=== PATIENT | female | born 1935 | race American Indian/Alaskan Native ===

== ENCOUNTER 2019-02-02 15:29 | Inpatient (IN) | payer MEDICARE ==
--- NOTE | 2019-02-02 15:39 | Emergency Department Report ---
ED Neuro Deficit HPI - General Chief Complaint: Neuro Symptoms/Deficit Stated Complaint: STROKE Time Seen by Provider: 02/02/19 15:38 Source: EMS Mode of arrival: Stretcher Limitations: Other - History of Present Illness Initial Comments: 3-year-old female with information obtained indicating that her last known well time was at 9 AM more than 6 hours prior to arrival. She went to sleep at that time. According to the family she is ordinarily able to ambulate. They also told the nurse that she had a seizure prior to EMS being somnolent because she was not able to get out of her bed. The patient arrives as a stroke code. At the door she is not providing any significant information. She does seem to respond to her name but does not follow commands. She is awake at the time. She presented with an apparently dense left hemiparesis. -: unknown Location: speech (last known well time 9 AM), left arm, left leg History of same: Yes (history of previous stroke but ambulatory according to history) Place: home Severity: severe Quality: weak On Anticoagulants: Yes Associated Symptoms: denies other symptoms - Related Data Home Medications: Home Medications Medication Instructions Recorded Confirmed Last Taken AtorvaSTATin [Lipitor] 80 mg PO QHS 02/02/19 02/02/19 Unknown Escitalopram [Lexapro] 30 mg PO DAILY 02/02/19 02/02/19 Unknown Lisinopril [Zestril TAB] 20 mg PO QDAY 02/02/19 02/02/19 Unknown Allergies/Adverse Reactions: Allergies Allergy/AdvReac Type Severity Reaction Status Date / Time No Known Allergies Allergy Unverified 02/02/19 15:30 ED Review of Systems ROS: Stated complaint: STROKE Other details as noted in HPI Comment: Unobtainable due to pts medical conditions (Limited secondary to neurological status) Neurological: denies: headache ED Past Medical Hx - Past Medical History Additional medical history: Previous stroke. On unknown anticoagulant per medic staff. Hospitalist tells me history of multiple sclerosis. I have not verified this. - Social History Substance Use Type: None - Medications Home Medications: Home Medications Medication Instructions Recorded Confirmed Last Taken Type AtorvaSTATin [Lipitor] 80 mg PO QHS 02/02/19 02/02/19 Unknown History Escitalopram [Lexapro] 30 mg PO DAILY 02/02/19 02/02/19 Unknown History Lisinopril [Zestril TAB] 20 mg PO QDAY 02/02/19 02/02/19 Unknown History ED Neuro Physical Exam - General Limitations: Other (stroke symptoms) General appearance: alert, in no apparent distress Suspected Stroke: Yes - Head Head exam: Present: atraumatic, normocephalic - Eye Eye exam: Present: normal appearance. Absent: scleral icterus - ENT ENT exam: Present: mucous membranes moist - Neck Neck exam: Present: normal inspection - Respiratory Respiratory exam: Present: normal lung sounds bilaterally. Absent: respiratory distress - Cardiovascular Cardiovascular Exam: Present: regular rate, normal rhythm. Absent: systolic murmur, diastolic murmur, rubs, gallop - GI/Abdominal GI/Abdominal exam: Present: soft, normal bowel sounds. Absent: distended, tenderness, guarding, rebound - Extremities Exam Extremities exam: Present: normal inspection - Back Exam Back exam: Present: normal inspection - Neurological Exam Neurological exam: Present: alert, motor sensory deficit. Absent: CN II-XII intact - NIHSS Assessment Interval: Baseline 1a. Level of Consciousness: alert/keenly responsive 1b. LOC Questions: answers no questions correctly 1c. LOC Commands: performs no tasks correctly 2. Best Gaze: normal 3. Visual: no visual loss 4. Facial Palsy: minor paralysis 5b. Motor Arm Right: no drift 5a. Motor Arm Left: no movement 6a. Motor Leg Left: no movement 6b. Motor Leg Right: no drift 7. Limb Ataxia: absent 8. Sensory: mild/moderate sensory loss 9. Best Language: mild/moderate aphasia 10. Dysarthria: normal 11. Extinction/Inattention: visual/tactile inattention Total Score: 16 Stroke Severity: Moderate to Severe Stroke - Psychiatric Psychiatric exam: Present: normal affect, normal mood - Skin Skin exam: Present: warm, dry, intact, normal color. Absent: rash ED Course Vital Signs 02/02/19 02/02/19 02/02/19 15:40 15:46 16:00 Temperature Pulse Rate 91 H 87 79 Respiratory 17 22 19 Rate Blood Pressure 125/97 125/97 O2 Sat by Pulse 100 100 Oximetry 02/02/19 02/02/19 02/02/19 16:16 16:30 16:34 Temperature 98.3 F Pulse Rate 73 68 Respiratory 16 19 Rate Blood Pressure 140/71 140/71 O2 Sat by Pulse 100 81 L Oximetry - Reevaluation(s) Reevaluation #1: Patient has a large right frontal infarct with certainly could affect the motor cortex. It is certainly not acute. At best it is subacute and possibly quite chronic. She would not be a candidate for thrombolysis with a large stroke appearing in a watershed correlating area on CT. She is not a candidate based on last known well time. She is further not a candidate based on anticoagulant therapy to be determined which type. In addition her appropriateness for TPA would be limited by the seizure that she had prior to arrival which suggest the possibility of a Bryce's paresis. I discussed this with the neurologist on-call who agrees that the patient is not a candidate for thrombolytics nor interventional therapy at this time with nothing on CT to suggest hyperdensity secondary to acute thrombosis. 02/02/19 18:26 Reevaluation #2: Reexamination shows that the patient is able to follow commands and stated her name. She remains with a dense left hemiparesis. 02/02/19 18:30 - Lab Data Result diagrams: 02/02/19 16:12 02/02/19 16:12 Lab Results 02/02/19 02/02/19 02/02/19 Range/Units 15:46 16:12 16:12 WBC 7.6 (4.5-11.0) K/mm3 RBC 4.12 (3.65-5.03) M/mm3 Hgb 13.2 (10.1-14.3) gm/dl Hct 38.5 (30.3-42.9) % MCV 94 (79-97) fl MCH 32 (28-32) pg MCHC 34 (30-34) % RDW 13.3 (13.2-15.2) % Plt Count 168 (140-440) K/mm3 Lymph % (Auto) 16.0 (13.4-35.0) % [place] % (Auto) 5.0 (0.0-7.3) % Eos % (Auto) 0.2 (0.0-4.3) % Baso % (Auto) 0.3 (0.0-1.8) % Lymph # 1.2 (1.2-5.4) K/mm3 [place] # 0.4 (0.0-0.8) K/mm3 Eos # 0.0 (0.0-0.4) K/mm3 Baso # 0.0 (0.0-0.1) K/mm3 Seg Neutrophils % 78.5 H (40.0-70.0) % Seg Neutrophils # 6.0 (1.8-7.7) K/mm3 PT 13.6 (12.2-14.9) Sec. INR 0.98 (0.87-1.13) APTT 25.7 (24.2-36.6) Sec. Thrombin Time (15.1-19.6) Sec. Sodium (137-145) mmol/L Potassium (3.6-5.0) mmol/L Chloride (98-107) mmol/L Carbon Dioxide (22-30) mmol/L Anion Gap mmol/L BUN (7-17) mg/dL Creatinine (0.7-1.2) mg/dL Estimated GFR ml/min BUN/Creatinine Ratio % Glucose (65-100) mg/dL POC Glucose 69 L (70-105) Calcium (8.4-10.2) mg/dL Troponin T (0.00-0.029) ng/mL 02/02/19 02/02/19 Range/Units 16:12 16:12 WBC (4.5-11.0) K/mm3 RBC (3.65-5.03) M/mm3 Hgb (10.1-14.3) gm/dl Hct (30.3-42.9) % MCV (79-97) fl MCH (28-32) pg MCHC (30-34) % RDW (13.2-15.2) % Plt Count (140-440) K/mm3 Lymph % (Auto) (13.4-35.0) % [place] % (Auto) (0.0-7.3) % Eos % (Auto) (0.0-4.3) % Baso % (Auto) (0.0-1.8) % Lymph # (1.2-5.4) K/mm3 [place] # (0.0-0.8) K/mm3 Eos # (0.0-0.4) K/mm3 Baso # (0.0-0.1) K/mm3 Seg Neutrophils % (40.0-70.0) % Seg Neutrophils # (1.8-7.7) K/mm3 PT (12.2-14.9) Sec. INR (0.87-1.13) APTT (24.2-36.6) Sec. Thrombin Time 16.3 (15.1-19.6) Sec. Sodium 139 (137-145) mmol/L Potassium 3.9 (3.6-5.0) mmol/L Chloride 98.3 (98-107) mmol/L Carbon Dioxide 24 (22-30) mmol/L Anion Gap 21 mmol/L BUN 20 H (7-17) mg/dL Creatinine 1.1 (0.7-1.2) mg/dL Estimated GFR 58 ml/min BUN/Creatinine Ratio 18 % Glucose 44 L (65-100) mg/dL POC Glucose (70-105) Calcium 9.6 (8.4-10.2) mg/dL Troponin T < 0.010 (0.00-0.029) ng/mL - EKG Data -: EKG Interpreted by Pa EKG shows normal: sinus rhythm, axis (left axis), intervals, QRS complexes, ST-T waves Rate: normal Interpretation: no acute changes - Radiology Data Radiology results: report reviewed FINDINGS: The ventricular system is normal in size and configuration. There is mild cerebral atrophy. Low- density in the right frontal lobe is consistent with remote infarct. Tiny remote lacunar infarcts in the basal ganglia bilaterally are noted. There is no evidence for mass lesion, mass effect, midline shift, acute i ntracranial hemorrhage, or acute ischemia/ infarction. No evidence for acute skull fracture is seen. No abnormality in the overlying scalp soft tissues is seen. Visualized paranasal sinuses are clear. IMPRESSION: No acute intracranial process noted. Remote infarct in the right frontal lobe with small lacunar infarcts in the basal ganglia bilaterally Critical Care Time: Yes Critical care time in (mins) excluding proc time.: 55 Critical care attestation.: If time is entered above; I have spent that time in minutes in the direct care of this critically ill patient, excluding procedure time. ED Disposition Clinical Impression: CVA (cerebral vascular accident) Qualifiers: CVA mechanism: unspecified Qualified Code(s): I63.9 - Cerebral infarction, unspecified Disposition: 09 OP ADMIT IP TO THIS HOSP Is pt being admited?: Yes Does the pt Need Aspirin: Yes Condition: Stable Referrals: MILI VILLAFANA MD [Primary Care Provider] - 3-5 Days Time of Disposition: 19:05
--- NOTE | 2019-02-02 15:52 | Cat Scan Report ---
In PROCEDURE: CT HEAD/BRAIN WO CON TECHNIQUE: Computerized tomography of the head was performed without contrast material. Imaging was obtained in axial increments. CT DOSE LENGTH PRODUCT: 1048.6 mGycm HISTORY: neuro deficits <6hrs or sx present upon awakening COMPARISONS: None . FINDINGS: The ventricular system is normal in size and configuration. There is mild cerebral atrophy. Low-densi ty in the right frontal lobe is consistent with remote infarct. Tiny remote lacunar infarcts in the b yasmin ganglia bilaterally are noted. There is no evidence for mass lesion, mass effect, midline shift, acute intracranial hemorrhage, or a cute ischemia/ infarction. No evidence for acute skull fracture is seen. No abnormality in the overlying scalp soft tissues is s een. Visualized paranasal sinuses are clear. IMPRESSION: No acute intracranial process noted. Remote infarct in the right frontal lobe with small lacunar infa rcts in the basal ganglia bilaterally This document is electronically signed by Chaya Bhatia MD., February 02 2019 03:50:35 PM ET
--- NOTE | 2019-02-02 16:15 | Consultation ---
History of Present Illness Consult date: 02/02/19 Reason for Consult: stroke alert Chief complaint: stroke alert- left sided weakness History of present illness: [facility] date of service: 02/02/19 Metrics: LKN 0900 door 1522 TS called 1547 TS connected 1550 NIH 1550 Impression: r/o stroke vs seizure from right frontal stroke (old) Recommendations: not a tPA candidate due to LKN time not an LVO if clear seizure history would recommend starting Keppra 1g IV load and then 500-750 mg po BID for maintenance MRI brain to r/o new stroke d/w ED doctor at time of assessment Ngoc Dietrich MD CC: stroke/seizure History of Present Illness: 83 yo female with h/o prior stroke but unable to tell me which side of her body it affected; nurse reports there was a witnessed seizure at home at 0900 hrs followed by worsening left sided weakness- on arrival she was not cooperating nor following commands, she has improved greatly and is able to follow all commands but not move left arm and leg there is sensory reduction as well in this region no h/o seizures no family present at this time Diagnostic Testing: CT right frontal infarct with large cortical involvement no blood Vital Signs: noted Medical Decision Making: - Extensive number of diagnosis or management options are considered above. - Extensive amount of complex data reviewed. - High risk of complication and/or morbidity or mortality are associated with differential diagnostic considerations above. - There may be uncertain outcome and increased probability of prolonged functional impairment or high probability of severe prolonged functional impairment associated with some of these differential diagnosis. Medical Data Reviewed: 1.Data reviewed include clinical labs, radiology, Medical Tests; 2.Tests results discussed w/performing or interpreting physician; 3.Obtaining/reviewing old medical records; 4.Obtaining case history from another source; 5.Independent review of image, tracing or specimen. Patient was informed the Neurology Consult would happen via telehealth (remote video) and consented to receiving care in this manner. Medications and Allergies Allergies Allergy/AdvReac Type Severity Reaction Status Date / Time No Known Allergies Allergy Unverified 02/02/19 15:30 Home Medications Medication Instructions Recorded Confirmed Last Taken Type AtorvaSTATin [Lipitor] 80 mg PO QHS 02/02/19 02/02/19 Unknown History Escitalopram [Lexapro] 30 mg PO DAILY 02/02/19 02/02/19 Unknown History Lisinopril [Zestril TAB] 20 mg PO QDAY 02/02/19 02/02/19 Unknown History - Level of Consciousness 1a. Level of Consciousness: alert/keenly responsive - LOC Questions 1b. LOC Questions: answers both correctly - LOC Command 1c. LOC Commands: performs tasks correctly - Best Gaze 2. Best Gaze: normal - Visual 3. Visual: no visual loss - Facial Palsy 4. Facial Palsy: minor paralysis - Motor Arm 5a. Motor Arm Left: some gravity effort 5b. Motor Arm Right: no drift - Motor Leg 6a. Motor Leg Left: some gravity effort 6b. Motor Leg Right: no drift - Limb Ataxia 7. Limb Ataxia: absent - Sensory 8. Sensory: mild/moderate sensory loss - Best Language 9. Best Language: no aphasia - Dysarthria 10. Dysarthria: normal - Extinction and Inattention 11. Extinction/Inattention: no abnormality - Scoring Total Score: 6 Stroke Severity: Moderate Stroke Results - Laboratory Findings CBC and BMP: 02/02/19 16:12 02/02/19 16:12
[2019-02-02] MEDS ORDERED: KEPPRA 1,000 MG/NS 0.75% 100ML 1,000 MG/100 ML BAG IV ONE (16:19)
[2019-02-02] MEDS ORDERED: KEPPRA 1,000 MG in D5W 100 ML IV ONE (16:20)
[2019-02-02 16:49] LABS: Basophils % (Auto) 0.3 % (0.0-1.8); Eosinophils % (Auto) 0.2 % (0.0-4.3); Hematocrit 38.5 % (30.3-42.9); Hemoglobin 13.2 gm/dl (10.1-14.3); Lymphocytes # (Auto) 1.2 K/mm3 (1.2-5.4); Mean Corpuscular HGB Conc 34 % (30-34); Mean Corpuscular Volume 94 fl (79-97); Monocytes # (Auto) 0.4 K/mm3 (0.0-0.8); Platelet Count 168 K/mm3 (140-440); Red Blood Count 4.12 M/mm3 (3.65-5.03); Red Cell Distribution Width 13.3 % (13.2-15.2)
[2019-02-02 16:59] LABS: INR 0.98 (0.87-1.13); Partial Thromboplastin Time 25.7 Sec. (24.2-36.6)
[2019-02-02 17:12] LABS: BUN/Creatinine Ratio 18; Blood Urea Nitrogen 20 mg/dL (7-17); Calcium 9.6 mg/dL (8.4-10.2); Hemolysis Index 4
--- NOTE | 2019-02-02 18:19 | History and Physical Report ---
History of Present Illness Date of examination: 02/02/19 Date of admission: 02/02/2019 Chief complaint: Left-sided weakness since 9 AM--sudden onset History of present illness: 83-year-old -[place] female with history of multiple strokes 3 hypertension hyperlipidemia dementia and depression was found to have left-sided weakness in both left upper exudate and left lower extremity. Patient is normally ambulatory. Activities of daily living like shower and eating has to be assisted. But she can walk to the bathroom. Patient has weakness in both left upper and left lower extremity which is new onset. While waiting for the EMS patient had generalized seizure which is first time occurrence. Seizures lasted for 1 minute. Patient was slightly postictal but in the emergency room she is alert and oriented. Last well-known time was 9 AM. Patient arrived around 3 PM. Patient is out of the window for TPA. Past History Past Medical History: hypertension, hyperlipidemia, seizures, stroke (3), other (depression) Past Surgical History: No surgical history Social history: no significant social history, lives with family, full code. denies: smoking, alcohol abuse Family history: hypertension Medications and Allergies Allergies Allergy/AdvReac Type Severity Reaction Status Date / Time No Known Allergies Allergy Unverified 02/02/19 15:30 Home Medications Medication Instructions Recorded Confirmed Last Taken Type AtorvaSTATin [Lipitor] 80 mg PO QHS 02/02/19 02/02/19 Unknown History Escitalopram [Lexapro] 30 mg PO DAILY 02/02/19 02/02/19 Unknown History Lisinopril [Zestril TAB] 20 mg PO QDAY 02/02/19 02/02/19 Unknown History Review of Systems All systems: negative Constitutional: no weight loss, no weight gain, no fever, no chills, no sweats, no night sweats Ears, nose, mouth and throat: no dysphagia, no hoarseness, no sore throat, no swelling in mouth Cardiovascular: no chest pain, no orthopnea, no palpitations, no rapid/irregular heart beat, no edema, no syncope, no lightheadedness, no shortness of breath Respiratory: no cough, no cough with sputum, no excessive sputum, no hemoptysis, no shortness of breath, no dyspnea on exertion Gastrointestinal: no nausea, no vomiting, no diarrhea Rectal: no pain Musculoskeletal: no neck stiffness, no neck pain, no shooting arm pain, no arm numbness/tingling, no low back pain, no shooting leg pain, no leg numbness/tingling, no redness of joints Integumentary: no rash, no pruritis, no redness, no sores Neurological: paralysis (left-sided weakness both upper and lower extremity), se izures, memory loss Psychiatric: memory loss Endocrine: no cold intolerance, no heat intolerance, no polyphagia, no excessive thirst, no polydipsia, no polyuria, no nocturia, no excessive sweating, no flushing, no weight change Hematologic/Lymphatic: no easy bruising, no easy bleeding Allergic/Immunologic: no urticaria, no allergic rhinitis, no wheezing Exam - Constitutional Vitals: Temp Pulse Resp BP Pulse Ox 98.3 F 68 19 140/71 81 L 02/02/19 16:34 02/02/19 16:30 02/02/19 16:30 02/02/19 16:30 02/02/19 16:30 General appearance: Present: no acute distress, well-nourished - EENT Eyes: Present: PERRL ENT: hearing intact, clear oral mucosa - Neck Neck: Present: supple, normal ROM - Respiratory Respiratory effort: normal Respiratory: bilateral: CTA - Cardiovascular Heart rate: 78 Rhythm: regular Heart Sounds: Present: S1 & S2. Absent: rub, click - Extremities Extremities: no ischemia, pulses intact, pulses symmetrical, No edema Peripheral Pulses: within normal limits - Abdominal General gastrointestinal: Present: soft, non-tender, non-distended, normal bowel sounds Female genitourinary: Present: normal - Rectal Rectal Exam: deferred - Integumentary Integumentary: Present: clear, warm, dry - Musculoskeletal Musculoskeletal: left sided weakness (power 1/5 in both upper and lower extremity-left side) - Psychiatric Psychiatric: cooperative - Neurologic Neurologic: CNII-XII intact, moves all extremities - Allied Health Allied health notes reviewed: nursing, case management (Nyasia mckeon) Results - Labs CBC & Chem 7: 02/02/19 16:12 02/02/19 16:12 Labs: Laboratory Last Values WBC 7.6 K/mm3 (4.5-11.0) 02/02/19 16:12 RBC 4.12 M/mm3 (3.65-5.03) 02/02/19 16:12 Hgb 13.2 gm/dl (10.1-14.3) 02/02/19 16:12 Hct 38.5 % (30.3-42.9) 02/02/19 16:12 MCV 94 fl (79-97) 02/02/19 16:12 MCH 32 pg (28-32) 02/02/19 16:12 MCHC 34 % (30-34) 02/02/19 16:12 RDW 13.3 % (13.2-15.2) 02/02/19 16:12 Plt Count 168 K/mm3 (140-440) 02/02/19 16:12 Lymph % (Auto) 16.0 % (13.4-35.0) 02/02/19 16:12 [place] % (Auto) 5.0 % (0.0-7.3) 02/02/19 16:12 Eos % (Auto) 0.2 % (0.0-4.3) 02/02/19 16:12 Baso % (Auto) 0.3 % (0.0-1.8) 02/02/19 16:12 Lymph # 1.2 K/mm3 (1.2-5.4) 02/02/19 16:12 [place] # 0.4 K/mm3 (0.0-0.8) 02/02/19 16:12 Eos # 0.0 K/mm3 (0.0-0.4) 02/02/19 16:12 Baso # 0.0 K/mm3 (0.0-0.1) 02/02/19 16:12 Seg Neutrophils % 78.5 % (40.0-70.0) H 02/02/19 16:12 Seg Neutrophils # 6.0 K/mm3 (1.8-7.7) 02/02/19 16:12 PT 13.6 Sec. (12.2-14.9) 02/02/19 16:12 INR 0.98 (0.87-1.13) 02/02/19 16:12 APTT 25.7 Sec. (24.2-36.6) 02/02/19 16:12 Thrombin Time 16.3 Sec. (15.1-19.6) 02/02/19 16:12 Sodium 139 mmol/L (137-145) 02/02/19 16:12 Potassium 3.9 mmol/L (3.6-5.0) 02/02/19 16:12 Chloride 98.3 mmol/L (98-107) 02/02/19 16:12 Carbon Dioxide 24 mmol/L (22-30) 02/02/19 16:12 Anion Gap 21 mmol/L 02/02/19 16:12 BUN 20 mg/dL (7-17) H 02/02/19 16:12 Creatinine 1.1 mg/dL (0.7-1.2) 02/02/19 16:12 Estimated GFR 58 ml/min 02/02/19 16:12 BUN/Creatinine Ratio 18 % 02/02/19 16:12 Glucose 44 mg/dL (65-100) L 02/02/19 16:12 POC Glucose 69 (70-105) L 02/02/19 15:46 Calcium 9.6 mg/dL (8.4-10.2) 02/02/19 16:12 Troponin T < 0.010 ng/mL (0.00-0.029) 02/02/19 16:12 Short CBC 02/02/19 Range/Units 16:12 WBC 7.6 (4.5-11.0) K/mm3 Hgb 13.2 (10.1-14.3) gm/dl Hct 38.5 (30.3-42.9) % Plt Count 168 (140-440) K/mm3 BMP 02/02/19 16:12 Sodium 139 Potassium 3.9 Chloride 98.3 Carbon Dioxide 24 BUN 20 H Creatinine 1.1 Glucose 44 L Calcium 9.6 Cardiac Enzymes 02/02/19 Range/Units 16:12 Troponin T < 0.010 (0.00-0.029) ng/mL - Imaging and Cardiology EKG: report reviewed Imaging and Cardiology: Head CT IMPRESSION: No acute intracranial process noted. Remote infarct in the right frontal lobe with small lacunar infarcts in the basal ganglia bilaterally EKG Data EKG Interpreted by Me EKG shows normal: sinus rhythm, axis (left axis), intervals, QRS complexes, ST-T waves Rate: normal Interpretation: no acute changes I Assessment and Plan Advance Directives: Yes (full code) VTE prophylaxis?: Chemical Plan of care discussed with patient/family: Yes - Patient Problems (1) Acute CVA (cerebrovascular accident) Current Visit: Yes Status: Acute Plan to address problem: Patient had strokes in the past but had no residual weakness. Was able to walk until this morning. Patient has left-sided weakness. Has 1/5 power in her left upper extremity and left lower extremity Stroke protocol initiated Patient did get MRI MRA carotid duplex scan and echocardiogram in the next 24 hours. Patient initiated on Plavix and aspirin. Neurology consult requested. Patient was on Lovenox in [place] with no clear indication. Lovenox will be stopped after discharge. (2) New onset seizure Current Visit: Yes Status: Acute Plan to address problem: Keppra initiated (3) Hypertension Current Visit: Yes Status: Chronic Qualifiers: Hypertension type: essential hypertension Qualified Code(s): I10 - Essential (primary) hypertension Plan to address problem: Continue antihypertensives especially lisinopril (4) Hyperlipidemia Current Visit: Yes Status: Chronic Qualifiers: Hyperlipidemia type: mixed hyperlipidemia Qualified Code(s): E78.2 - Mixed hyperlipidemia Plan to address problem: Continue statins (5) Depression Current Visit: Yes Status: Chronic Qualifiers: Depression Type: unspecified Qualified Code(s): F32.9 - Major depressive disorder, single episode, unspecified Plan to address problem: Continue citalopram (6) DVT prophylaxis Current Visit: Yes Status: Acute Plan to address problem: Initiated on Lovenox and GI prophylaxis
[2019-02-02] MEDS ORDERED: TYLENOL PO PRN (18:22)
[2019-02-02] MEDS ORDERED: SODIUM CHLORIDE FLUSH SYRINGE 10 ML IV PRN ×2 (18:22→18:30)
[2019-02-02] MEDS ORDERED: ZOFRAN IV PRN (18:22)
[2019-02-02] MEDS ORDERED: DILAUDID IV PRN (18:23)
[2019-02-02] MEDS ORDERED: D5NS 1,000 ML IV SCH (19:00)
[2019-02-02] MEDS: ZESTRIL PO SCH (19:02)
[2019-02-02] MEDS: ASPIRIN PO SCH (19:02)
[2019-02-02] MEDS ORDERED: ASPIRIN PO ONE (19:07)
[2019-02-02] MEDS: LEXAPRO PO SCH (20:47)
[2019-02-02] MEDS ORDERED: ASPIRIN ONE (20:53)
[2019-02-02] MEDS ORDERED: KETAMINE HCL IV ONE (21:50)
[2019-02-02] MEDS ORDERED: DIPRIVAN 10 MG/ML IV ONE (21:50)
[2019-02-02] MEDS: KEPPRA 750 MG in NACL 0.9% 100 ML IV SCH (23:40)
[2019-02-02] MEDS: LOVENOX SUB-Q SCH (23:41)
[2019-02-03] MEDS: SODIUM CHLORIDE FLUSH SYRINGE 10 ML IV SCH ×3 (00:18→21:29)
[2019-02-03 07:57] LABS: Basophils % (Auto) 0.7 % (0.0-1.8); Eosinophils # (Auto) 0.1 K/mm3 (0.0-0.4); Eosinophils % (Auto) 1.9 % (0.0-4.3); Hematocrit 35.7 % (30.3-42.9); Hemoglobin 12.2 gm/dl (10.1-14.3); Lymphocytes % (Auto) 37.7 % (13.4-35.0); Mean Corpuscular HGB Conc 34 % (30-34); Mean Corpuscular Volume 93 fl (79-97); Monocytes # (Auto) 0.4 K/mm3 (0.0-0.8); Monocytes % (Auto) 7.7 % (0.0-7.3); Platelet Count 150 K/mm3 (140-440); Red Blood Count 3.83 M/mm3 (3.65-5.03); Red Cell Distribution Width 13.2 % (13.2-15.2)
[2019-02-03 08:24] LABS: Alanine Aminotransferase 10 units/L (7-56); Albumin 3.4 g/dL (3.9-5); BUN/Creatinine Ratio 20; Blood Urea Nitrogen 20 mg/dL (7-17); Calcium 9.1 mg/dL (8.4-10.2); HDL Cholesterol 61 mg/dL (40-59); Hemolysis Index 4; LDL Cholesterol,Direct 70 mg/dL (50-130)
[2019-02-03 08:59] LABS: Chol/HDL Ratio 2.18 %
--- NOTE | 2019-02-03 09:33 | Vascular Lab Report ---
PROCEDURE: VL CAROTID DUPLEX BILAT TECHNIQUE: Carotid duplex Doppler ultrasound HISTORY: stroke COMPARISON: None FINDINGS: There is mild degree of atherosclerotic plaque bilaterally. There is no abnormal elevation in carotid flow velocity seen. The ICA/CCA velocity ratios are normal, 0.70 on the right and 0.79 on the left. Findings indicate no stenosis of significance. Specifically, findings correspond to stenoses of less than 50%. Vertebral artery flow is antegrade bilaterally. IMPRESSION: No evidence of any hemodynamically significant stenosis. This document is electronically signed by Lupe España MD., February 03 2019 09:31:08 AM ET
--- NOTE | 2019-02-03 10:58 | Magnetic Resonance Report ---
MRI BRAIN WITHOUT CONTRAST: 02/03/19 CLINICAL: Stroke. TECHNIQUE: Axial diffusion, T1, T2, gradient echo T2*, coronal and axial FLAIR and sagittal T1 sequences on a 1.5 Mandi magnet. FINDINGS: Sulcal enlargement out of proportion to mild ventricular enlargement. The sulci particularly large in the frontal and temporal lobes. No restricted diffusion. Right frontal lobe encephalomalacia and several tiny bilateral basal ganglia chronic lacunar infarcts. A tiny chronic microbleed in the left thalamus and tiny chronic microbleeds in the right sami on the gradient echo sequence. No other hemorrhage. Moderate bilateral periventricular white matter hyperintensities FLAIR and T2. No mass or mass effect. No edema or extra-axial collection. Normal pituitary and optic chiasm. The cerebellum is normal. Intact major vascular flow voids. Mild bilateral ethmoid and maxillary sinusitis. No air-fluid levels in the sinuses. The orbits, and soft tissues are normal. Normal calvarium and skull base. IMPRESSION: 1. No evidence of acute/subacute infarct or hemorrhage. 2. Chronic right frontal lobe infarct with significant encephalomalacia. 3. Several bilateral tiny chronic basal ganglia lacunar infarcts. 4. Chronic microbleeds of the left thalamus and right sami. 5. Global cortical atrophy and moderate chronic white matter microangiopathy.
--- NOTE | 2019-02-03 11:03 | Magnetic Resonance Report ---
MRA HEAD WITHOUT CONTRAST: 02/03/19 CLINICAL: Stroke. TECHNIQUE: Axial 3-D [id number] MR angiography of the [place] with review of axial source images. FINDINGS: Absent flow in the right CARA. Symmetric blood flow in the , middle and posterior cerebral arteries. No aneurysm or high-grade stenosis. Normal basilar and vertebral arteries. The right vertebral artery is dominant. IMPRESSION: Occluded right CARA consistent with known chronic right frontal lobe infarct.
[2019-02-03] MEDS: ASPIRIN PO SCH (14:42)
[2019-02-03] MEDS: LEXAPRO PO SCH (14:42)
[2019-02-03] MEDS: ZESTRIL PO SCH (14:42)
[2019-02-03] MEDS: PLAVIX PO SCH (14:43)
[2019-02-03] MEDS: KEPPRA 750 MG in NACL 0.9% 100 ML IV SCH ×2 (14:51→23:56)
--- NOTE | 2019-02-03 16:15 | Progress Note ---
Assessment and Plan Assessment and plan: Left sided weakness MRI Brain no acute stroke, but chronic microbleeds Patient seen by PT and recommends subacute rehab History of stroke Neurology following Plavix Hypertension Resume Lisinopril from home Hyperlipidemia Lipitor Depression On Lexapro Dispo:For subacute rehab placement as recommended by PT Full code status History Interval history: Left sided weakness Hospitalist Physical - Physical exam Narrative exam: GEN: Not in acute distress, lying in bed, obese HEENT: Normocephalic, atraumatic, Neck: supple, No JVD heart: S1 and S2 reg, no murmurs, rubs or gallop Lungs: Clear, no crackles Abd:soft, non tender, non distended,. normal bowel sounds Ext: Edema both lower ext, no cyanosis Neuro:Awake,alert,oriented X 3, left sided weakness Psych: normal mood - Constitutional Vitals: Temp Pulse Resp BP Pulse Ox 98.4 F 73 20 115/63 97 02/03/19 16:09 02/03/19 16:09 02/03/19 16:09 02/03/19 16:09 02/03/19 16:09 General appearance: Present: no acute distress, obese Results - Labs CBC & Chem 7: 02/03/19 07:14 02/03/19 07:14 Labs: Laboratory Last Values WBC 5.2 K/mm3 (4.5-11.0) 02/03/19 07:14 RBC 3.83 M/mm3 (3.65-5.03) 02/03/19 07:14 Hgb 12.2 gm/dl (10.1-14.3) 02/03/19 07:14 Hct 35.7 % (30.3-42.9) 02/03/19 07:14 MCV 93 fl (79-97) 02/03/19 07:14 MCH 32 pg (28-32) 02/03/19 07:14 MCHC 34 % (30-34) 02/03/19 07:14 RDW 13.2 % (13.2-15.2) 02/03/19 07:14 Plt Count 150 K/mm3 (140-440) 02/03/19 07:14 Lymph % (Auto) 37.7 % (13.4-35.0) H 02/03/19 07:14 [place] % (Auto) 7.7 % (0.0-7.3) H 02/03/19 07:14 Eos % (Auto) 1.9 % (0.0-4.3) 02/03/19 07:14 Baso % (Auto) 0.7 % (0.0-1.8) 02/03/19 07:14 Lymph # 2.0 K/mm3 (1.2-5.4) 02/03/19 07:14 [place] # 0.4 K/mm3 (0.0-0.8) 02/03/19 07:14 Eos # 0.1 K/mm3 (0.0-0.4) 02/03/19 07:14 Baso # 0.0 K/mm3 (0.0-0.1) 02/03/19 07:14 Seg Neutrophils % 52.0 % (40.0-70.0) 02/03/19 07:14 Seg Neutrophils # 2.7 K/mm3 (1.8-7.7) 02/03/19 07:14 PT 13.6 Sec. (12.2-14.9) 02/02/19 16:12 INR 0.98 (0.87-1.13) 02/02/19 16:12 APTT 25.7 Sec. (24.2-36.6) 02/02/19 16:12 Thrombin Time 16.3 Sec. (15.1-19.6) 02/02/19 16:12 Sodium 141 mmol/L (137-145) 02/03/19 07:14 Potassium 4.7 mmol/L (3.6-5.0) D 02/03/19 07:14 Chloride 103.3 mmol/L (98-107) 02/03/19 07:14 Carbon Dioxide 29 mmol/L (22-30) 02/03/19 07:14 Anion Gap 13 mmol/L 02/03/19 07:14 BUN 20 mg/dL (7-17) H 02/03/19 07:14 Creatinine 1.0 mg/dL (0.7-1.2) 02/03/19 07:14 Estimated GFR > 60 ml/min 02/03/19 07:14 BUN/Creatinine Ratio 20 % 02/03/19 07:14 Glucose 100 mg/dL (65-100) 02/03/19 07:14 POC Glucose 69 (70-105) L 02/02/19 15:46 Hemoglobin A1c 5.4 % (4-6) 02/02/19 20:24 Calcium 9.1 mg/dL (8.4-10.2) 02/03/19 07:14 Total Bilirubin 0.70 mg/dL (0.1-1.2) 02/03/19 07:14 AST 16 units/L (5-40) 02/03/19 07:14 ALT 10 units/L (7-56) 02/03/19 07:14 Alkaline Phosphatase 54 units/L (35-129) 02/03/19 07:14 Troponin T < 0.010 ng/mL (0.00-0.029) 02/02/19 16:12 Total Protein 6.9 g/dL (6.3-8.2) 02/03/19 07:14 Albumin 3.4 g/dL (3.9-5) L 02/03/19 07:14 Albumin/Globulin Ratio 1.0 % 02/03/19 07:14 Triglycerides 42 mg/dL (2-149) 02/03/19 07:14 Cholesterol 133 mg/dL (50-199) 02/03/19 07:14 LDL Cholesterol Direct 70 mg/dL (50-130) 02/03/19 07:14 HDL Cholesterol 61 mg/dL (40-59) H 02/03/19 07:14 Cholesterol/HDL Ratio 2.18 % 02/03/19 07:14 Active Medications - Current Medications Current Medications: Generic Name Dose Route Start Last Admin Trade Name Freq PRN Reason Stop Dose Admin Acetaminophen 650 mg 02/02/19 18:22 Tylenol PO Q4H PRN Pain MILD(1-3)/Fever >100.5/[place] Aspirin 325 mg 02/02/19 19:00 02/03/19 14:42 Aspirin PO 325 mg QDAY NISH Administration Atorvastatin Calcium 80 mg 02/02/19 22:00 02/02/19 23:41 Lipitor PO 80 mg QHS NISH Administration Clopidogrel Bisulfate 75 mg 02/03/19 10:00 02/03/19 14:43 Plavix PO 75 mg QDAY NISH Administration Enoxaparin Sodium 40 mg 02/02/19 22:00 02/02/19 23:41 Lovenox SUB-Q 40 mg QDAY@2200 NISH Administration Escitalopram Oxalate 30 mg 02/02/19 19:00 02/03/19 14:42 Lexapro PO 30 mg DAILY NISH Administration Hydromorphone HCl 0.25 mg 02/02/19 18:23 Dilaudid IV Q3H PRN Pain, Moderate (4-6) Levetiracetam 750 mg/ Sodium 107.5 mls @ 400 mls/hr 02/02/19 22:00 02/03/19 14:51 Chloride IV 400 mls/hr Q12HR NISH Administration Lisinopril 20 mg 02/02/19 19:00 02/03/19 14:42 Zestril PO 20 mg QDAY NISH Administration Ondansetron HCl 4 mg 02/02/19 18:22 Zofran IV Q8H PRN Nausea And Vomiting Sodium Chloride 10 ml 02/02/19 22:00 02/03/19 00:18 Sodium Chloride Flush Syringe 10 Ml IV 10 ml BID NISH Administration Sodium Chloride 10 ml 02/02/19 18:22 Sodium Chloride Flush Syringe 10 Ml IV PRN PRN LINE FLUSH
--- NOTE | 2019-02-03 16:44 | Progress Note ---
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 howver we should check ECHO closely for origin of potential emboli explained the dx to the patient ECHO is very important exam shows moderate weakness o f the left arm only Objective - Vital Sign Vital Signs - 12hr 02/03/19 02/03/19 02/03/19 08:00 14:27 16:09 Temperature 98.0 F 98.4 F Pulse Rate 61 73 Respiratory 20 20 Rate Blood Pressure 115/63 Blood Pressure 116/54 [Right] O2 Sat by Pulse 98 98 97 Oximetry - Laboratory Findings CBC and BMP: 02/03/19 07:14 02/03/19 07:14 Abnormal Lab Findings: Abnormal Labs 02/02/19 02/02/19 02/02/19 15:46 16:12 16:12 Lymph % (Auto) [place] % (Auto) Seg Neutrophils % 78.5 H BUN 20 H Glucose 44 L POC Glucose 69 L Albumin HDL Cholesterol 02/03/19 02/03/19 07:14 07:14 Lymph % (Auto) 37.7 H [place] % (Auto) 7.7 H Seg Neutrophils % BUN 20 H Glucose POC Glucose Albumin 3.4 L HDL Cholesterol 61 H
[2019-02-03] MEDS: LOVENOX SUB-Q SCH (21:28)
--- NOTE | 2019-02-04 02:43 | Consultation ---
HISTORY OF PRESENT ILLNESS: This is an 83-year-old black female that presents to [facility] with a history of onset of increasing weakness of the left arm. She has on MRI scan a very large subacute lesion over the right distal territory of the right distal arm area and a new ischemic lesion very subtle in the posterior limb of the internal capsule, which is very faintly seen on the diffusion-weighted image but nonetheless is present, but she is a very large infarct which almost appears to be present over the anterior cerebral artery distribution, which is old and chronic. Evaluating her MRA scan of the brain, the patient has an occluded right anterior cerebral artery consistent with a known chronic right frontal lobe infarct. This was not surprising given the appearance of the infarct present on the current scan what appears to be a new lesion is a small evidence of an acute infarct in the right internal capsule, but also I suspect there may be further lesions present in the brainstem. She apparently had the sudden onset of this problem. I have reviewed over the sami and there is a very large old ischemic infarct which is present bilaterally, which I suspect is where the cause of this lady's problem is because she does not have any denial of hemiparesis or any neglect. She also has a headache associated with this, which is unusual for the type of stroke that she has. I think that the diffusion weighted image of the sami also shows an area in the right sami and the arm area. When she presented to the Emergency Room, she had been taking atorvastatin, Lexapro, lisinopril, and she subsequently was admitted with a new complaint of arm weakness on the left side. Her vital signs do show her blood pressure is well maintained at 137/69. She has been afebrile. ALLERGIES: She denies any allergies. FAMILY HISTORY: Positive for stroke. PHYSICAL EXAMINATION: VITAL SIGNS: On my examination, at this point, her blood pressure is 115/61, her pulse rate is 73, temperature is 98 degrees, pO2 saturation is 97%. NEUROLOGIC: The patient's cranial nerves are intact with a very minimal degree of left facial weakness. She has a dense paresis involving the left arm, but she is able to move it. She does not have any leg paralysis at all. Sensation is intact. No visual field cuts are noted. She does not have a denial of hemiparesis or any right parietal lobe findings. She does not have any visual field cuts. Sensory examination, she has hypesthesia involving the left arm, not of the face, but she did have a headache at onset. She complains of some mild left-sided headache to palpation. IMPRESSION: This patient has a very unusual presentation. She has known anterior cerebral artery infarction, which is chronic. I would expect her to have a great deal of leg weakness with this lesion, but she has almost none. She has an old lesion in the sami, which is bilateral. I also suspect there is a new acute lesion noted over in the right sami, which would account for her arm weakness. I found that she does not have any gaze paresis so that this is a pontine midline lesion is not in the level of eye control centers which would be expected to produce a gaze disorder. Pupils are equal, round, react to light. No visual field cuts are noted and pupils are equal, round, reactive to light. The patient has a confluence of both the brainstem stroke and internal capsule and right occluded anterior cerebral artery. We would recommend aspirin therapy. Continue statin. I will look on echocardiogram for evidence of emboli. This is quite important in this situation and I will follow the patient with you. JOB# [id number] NATACHA/NTS
[2019-02-04] MEDS: LEXAPRO PO SCH (10:29)
[2019-02-04] MEDS: ZESTRIL PO SCH (10:30)
[2019-02-04] MEDS: SODIUM CHLORIDE FLUSH SYRINGE 10 ML IV SCH ×2 (10:30→21:45)
[2019-02-04] MEDS: PLAVIX PO SCH (10:30)
[2019-02-04] MEDS: KEPPRA 750 MG in NACL 0.9% 100 ML IV SCH ×2 (10:33→21:44)
--- NOTE | 2019-02-04 13:43 | Progress Note ---
Assessment and Plan Assessment and plan: Left sided weakness MRI Brain no acute stroke, but chronic microbleeds Patient seen by PT and recommends subacute rehab History of stroke Neurology following Plavix Hypertension Resumed Lisinopril Hyperlipidemia Lipitor Depression On Lexapro Dispo:For subacute rehab placement as recommended by PT Full code status History Interval history: No new issues overnight Hospitalist Physical - Constitutional Vitals: Temp Pulse Resp BP Pulse Ox 98.4 F 74 18 123/64 94 02/04/19 12:13 02/04/19 12:13 02/04/19 12:13 02/04/19 12:13 02/04/19 12:13 General appearance: Present: no acute distress, obese - EENT Eyes: Present: PERRL, EOM intact ENT: hearing intact, clear oral mucosa, dentition normal - Neck Neck: Present: supple, normal ROM - Respiratory Respiratory effort: normal Respiratory: bilateral: CTA - Cardiovascular Rhythm: regular Heart Sounds: Present: S1 & S2. Absent: gallop, rub - Extremities Extremities: no ischemia, No edema, Full ROM - Abdominal General gastrointestinal: soft, non-tender, non-distended, normal bowel sounds - Integumentary Integumentary: Present: clear, warm, dry - Neurologic Neurologic: CNII-XII intact, moves all extremities Results - Labs CBC & Chem 7: 02/03/19 07:14 02/03/19 07:14 Labs: Laboratory Last Values WBC 5.2 K/mm3 (4.5-11.0) 02/03/19 07:14 RBC 3.83 M/mm3 (3.65-5.03) 02/03/19 07:14 Hgb 12.2 gm/dl (10.1-14.3) 02/03/19 07:14 Hct 35.7 % (30.3-42.9) 02/03/19 07:14 MCV 93 fl (79-97) 02/03/19 07:14 MCH 32 pg (28-32) 02/03/19 07:14 MCHC 34 % (30-34) 02/03/19 07:14 RDW 13.2 % (13.2-15.2) 02/03/19 07:14 Plt Count 150 K/mm3 (140-440) 02/03/19 07:14 Lymph % (Auto) 37.7 % (13.4-35.0) H 02/03/19 07:14 [place] % (Auto) 7.7 % (0.0-7.3) H 02/03/19 07:14 Eos % (Auto) 1.9 % (0.0-4.3) 02/03/19 07:14 Baso % (Auto) 0.7 % (0.0-1.8) 02/03/19 07:14 Lymph # 2.0 K/mm3 (1.2-5.4) 02/03/19 07:14 [place] # 0.4 K/mm3 (0.0-0.8) 02/03/19 07:14 Eos # 0.1 K/mm3 (0.0-0.4) 02/03/19 07:14 Baso # 0.0 K/mm3 (0.0-0.1) 02/03/19 07:14 Seg Neutrophils % 52.0 % (40.0-70.0) 02/03/19 07:14 Seg Neutrophils # 2.7 K/mm3 (1.8-7.7) 02/03/19 07:14 PT 13.6 Sec. (12.2-14.9) 02/02/19 16:12 INR 0.98 (0.87-1.13) 02/02/19 16:12 APTT 25.7 Sec. (24.2-36.6) 02/02/19 16:12 Thrombin Time 16.3 Sec. (15.1-19.6) 02/02/19 16:12 Sodium 141 mmol/L (137-145) 02/03/19 07:14 Potassium 4.7 mmol/L (3.6-5.0) D 02/03/19 07:14 Chloride 103.3 mmol/L (98-107) 02/03/19 07:14 Carbon Dioxide 29 mmol/L (22-30) 02/03/19 07:14 Anion Gap 13 mmol/L 02/03/19 07:14 BUN 20 mg/dL (7-17) H 02/03/19 07:14 Creatinine 1.0 mg/dL (0.7-1.2) 02/03/19 07:14 Estimated GFR > 60 ml/min 02/03/19 07:14 BUN/Creatinine Ratio 20 % 02/03/19 07:14 Glucose 100 mg/dL (65-100) 02/03/19 07:14 POC Glucose 69 (70-105) L 02/02/19 15:46 Hemoglobin A1c 5.4 % (4-6) 02/02/19 20:24 Calcium 9.1 mg/dL (8.4-10.2) 02/03/19 07:14 Total Bilirubin 0.70 mg/dL (0.1-1.2) 02/03/19 07:14 AST 16 units/L (5-40) 02/03/19 07:14 ALT 10 units/L (7-56) 02/03/19 07:14 Alkaline Phosphatase 54 units/L (35-129) 02/03/19 07:14 Troponin T < 0.010 ng/mL (0.00-0.029) 02/02/19 16:12 Total Protein 6.9 g/dL (6.3-8.2) 02/03/19 07:14 Albumin 3.4 g/dL (3.9-5) L 02/03/19 07:14 Albumin/Globulin Ratio 1.0 % 02/03/19 07:14 Triglycerides 42 mg/dL (2-149) 02/03/19 07:14 Cholesterol 133 mg/dL (50-199) 02/03/19 07:14 LDL Cholesterol Direct 70 mg/dL (50-130) 02/03/19 07:14 HDL Cholesterol 61 mg/dL (40-59) H 02/03/19 07:14 Cholesterol/HDL Ratio 2.18 % 02/03/19 07:14 Active Medications - Current Medications Current Medications: Generic Name Dose Route Start Last Admin Trade Name Freq PRN Reason Stop Dose Admin Acetaminophen 650 mg 02/02/19 18:22 Tylenol PO Q4H PRN Pain MILD(1-3)/Fever >100.5/[place] Atorvastatin Calcium 80 mg 02/02/19 22:00 02/03/19 21:28 Lipitor PO 80 mg QHS NISH Administration Clopidogrel Bisulfate 75 mg 02/03/19 10:00 02/04/19 10:30 Plavix PO 75 mg QDAY NISH Administration Enoxaparin Sodium 40 mg 02/02/19 22:00 02/03/19 21:28 Lovenox SUB-Q 40 mg QDAY@2200 NISH Administration Escitalopram Oxalate 30 mg 02/02/19 19:00 02/04/19 10:29 Lexapro PO 30 mg DAILY NISH Administration Hydromorphone HCl 0.25 mg 02/02/19 18:23 Dilaudid IV Q3H PRN Pain, Moderate (4-6) Levetiracetam 750 mg/ Sodium 107.5 mls @ 400 mls/hr 02/02/19 22:00 02/04/19 10:33 Chloride IV 02/04/19 23:59 400 mls/hr Q12HR NISH Administration Levetiracetam 750 mg 02/05/19 10:00 Keppra PO BID NISH Lisinopril 20 mg 02/02/19 19:00 02/04/19 10:30 Zestril PO 20 mg QDAY NISH Administration Ondansetron HCl 4 mg 02/02/19 18:22 Zofran IV Q8H PRN Nausea And Vomiting Sodium Chloride 10 ml 02/02/19 22:00 02/04/19 10:30 Sodium Chloride Flush Syringe 10 Ml IV 10 ml BID NISH Administration Sodium Chloride 10 ml 02/02/19 18:22 Sodium Chloride Flush Syringe 10 Ml IV PRN PRN LINE FLUSH
[2019-02-04] MEDS: LOVENOX SUB-Q SCH (21:44)
[2019-02-05] MEDS: PLAVIX PO SCH (09:33)
[2019-02-05] MEDS: ZESTRIL PO SCH (09:33)
[2019-02-05] MEDS: LEXAPRO PO SCH (09:33)
[2019-02-05] MEDS: SODIUM CHLORIDE FLUSH SYRINGE 10 ML IV SCH ×2 (09:34→21:20)
[2019-02-05] MEDS: KEPPRA PO SCH ×2 (09:34→21:20)
--- NOTE | 2019-02-05 10:19 | Discharge Summary ---
Providers - Providers Date of Admission: 02/02/19 18:20 Date of discharge: 02/07/19 Attending physician: SHANTAL VIRK 02/02/19 18:23 Consult to Physician [CONS] Routine Comment: Consulting Provider: ANNY NOGUEIRA Physician Instructions: Reason For Exam: acute CVA 02/02/19 18:30 Occupational Therapy Evaluate and Treat [CONS] Routine Comment: Reason For Exam: Neuro deficits Physical Therapy Evaluation and Treat [CONS] Routine Comment: Reason For Exam: Neuro deficits 02/03/19 16:15 Speech Therapy Evaluation and Treat [CONS] Routine Reason For Exam: stroke [facility] Reason for admission: CVA Condition: Stable Hospital course: 83-year-old -[place] female with history of multiple strokes 3 hypertension hyperlipidemia dementia and depression was found to have left-sided weakness in both left upper and lower extremity of new onset. Patient was normally ambulatory. Activities of daily living like shower and eating had to be assisted. While waiting for the EMS, patient had generalized seizure which is first time occurrence. Seizures lasted for 1 minute. Patient was slightly postictal but in the emergency room she was alert and oriented. Last well-known time was 9 AM prior to admission. Patient arrived around 3 PM. Patient was out of the window for TPA. The patient underwent evaluation with MRI of the brain that showed no acute stroke but chronic microbleeds. Neurology saw the patient in consultation and suspected very complex series of strokes with right anterior cerebral artery has old infarct from total occlusion, midline pontine infarct old and subacute right internal capsule infract suspect all are related to atherosclerotic occlusive disease. Echocardiogram revealed EF 50-55% with negative bubble study. No evidence of thromboembolic source reported. Patient was treated with Keppra for seizure prophylaxis 750 mg by mouth twice a day. No new seizure activity after admission. Patient will be continued on secondary prevention with Lipitor and Plavix. Physical therapy saw the patient consultation and recommended subacute rehabilitation. Dedicated discharge time 32 minutes. Disposition: TO HOME OR SELFCARE Time spent for discharge: 32 - Discharge Diagnoses (1) Acute CVA (cerebrovascular accident) Status: Acute (2) New onset seizure Status: Acute (3) Depression Status: Chronic Qualifiers: Depression Type: unspecified Qualified Code(s): F32.9 - Major depressive disorder, single episode, unspecified (4) Hyperlipidemia Status: Chronic Qualifiers: Hyperlipidemia type: mixed hyperlipidemia Qualified Code(s): E78.2 - Mixed hyperlipidemia (5) Hypertension Status: Chronic Qualifiers: Hypertension type: essential hypertension Qualified Code(s): I10 - Essential (primary) hypertension Core Measure Documentation - Palliative Care Palliative Care/ Comfort Measures: Not Applicable - Core Measures Any of the following diagnoses?: none Exam - Constitutional Vitals: Temp Pulse Resp BP Pulse Ox 98.5 F 50 L 14 135/64 97 02/05/19 08:33 02/05/19 08:33 02/05/19 08:33 02/05/19 08:33 02/05/19 08:33 General appearance: Present: no acute distress, well-nourished - EENT Eyes: Present: PERRL ENT: hearing intact, clear oral mucosa - Neck Neck: Present: supple, normal ROM - Respiratory Respiratory effort: normal Respiratory: bilateral: CTA - Cardiovascular Heart Sounds: Present: S1 & S2. Absent: rub, click - Extremities Extremities: pulses symmetrical, No edema Peripheral Pulses: within normal limits - Abdominal General gastrointestinal: Present: soft, non-tender, non-distended, normal bowel sounds Female genitourinary: Present: normal - Integumentary Integumentary: Present: clear, warm, dry - Musculoskeletal Musculoskeletal: gait normal, strength equal bilaterally - Psychiatric Psychiatric: appropriate mood/affect, intact judgment & insight - Neurologic Neurologic: CNII-XII intact, moves all extremities Plan Activity: no restrictions Weight Bearing Status: Full Weight Bearing Follow up with: MILI VILLAFANA MD [Primary Care Provider] - 3-5 Days Prescriptions: levETIRAcetam [Keppra TAB] 750 mg PO BID #60 tablet Clopidogrel [Plavix] 75 mg PO QDAY 60 Days tablet
--- NOTE | 2019-02-05 13:40 | Progress Note ---
Subjective Date of service: 02/05/19 Interval history: cleared for discharge and is OK to f/u in the office medical therapy for stroke rec'ed Objective - Vital Sign Vital Signs - 12hr 02/05/19 02/05/19 02/05/19 04:50 07:00 08:33 Temperature 98.1 F 98.5 F Pulse Rate 63 51 L 50 L Respiratory 16 14 Rate Blood Pressure 129/40 135/64 O2 Sat by Pulse 97 97 Oximetry - Laboratory Findings CBC and BMP: 02/03/19 07:14 02/03/19 07:14 Abnormal Lab Findings: Abnormal Labs 02/02/19 02/02/19 02/02/19 15:46 16:12 16:12 Lymph % (Auto) [place] % (Auto) Seg Neutrophils % 78.5 H BUN 20 H Glucose 44 L POC Glucose 69 L Albumin HDL Cholesterol 02/03/19 02/03/19 07:14 07:14 Lymph % (Auto) 37.7 H [place] % (Auto) 7.7 H Seg Neutrophils % BUN 20 H Glucose POC Glucose Albumin 3.4 L HDL Cholesterol 61 H
[2019-02-05] MEDS: LOVENOX SUB-Q SCH (21:21)
--- NOTE | 2019-02-06 08:10 | Progress Note ---
Assessment and Plan Assessment and plan: Left sided weakness MRI Brain no acute stroke, but chronic microbleeds Patient seen by PT and recommends subacute rehab History of stroke Neurology following Plavix Hypertension Resumed Lisinopril Hyperlipidemia Lipitor Depression On Lexapro Dispo:For subacute rehab placement as recommended by PT Full code status - Patient Problems (1) Acute CVA (cerebrovascular accident) Current Visit: Yes Status: Acute (2) New onset seizure Current Visit: Yes Status: Acute (3) Depression Current Visit: Yes Status: Chronic Qualifiers: Depression Type: unspecified Qualified Code(s): F32.9 - Major depressive disorder, single episode, unspecified (4) Hyperlipidemia Current Visit: Yes Status: Chronic Qualifiers: Hyperlipidemia type: mixed hyperlipidemia Qualified Code(s): E78.2 - Mixed hyperlipidemia (5) Hypertension Current Visit: Yes Status: Chronic Qualifiers: Hypertension type: essential hypertension Qualified Code(s): I10 - Essential (primary) hypertension History Interval history: No new issues overnight Hospitalist Physical - Constitutional Vitals: Temp Pulse Resp BP Pulse Ox 98.2 F 64 12 146/72 97 02/06/19 04:00 02/06/19 04:00 02/06/19 04:00 02/06/19 04:00 02/06/19 04:00 General appearance: Present: no acute distress, well-nourished - EENT Eyes: Present: PERRL, EOM intact ENT: hearing intact, clear oral mucosa, dentition normal - Neck Neck: Present: supple, normal ROM - Respiratory Respiratory effort: normal Respiratory: bilateral: CTA - Cardiovascular Rhythm: regular Heart Sounds: Present: S1 & S2. Absent: gallop, rub - Extremities Extremities: no ischemia, No edema, Full ROM - Abdominal General gastrointestinal: soft, non-tender, non-distended, normal bowel sounds - Integumentary Integumentary: Present: clear, warm, dry - Neurologic Neurologic: CNII-XII intact, moves all extremities Results - Labs CBC & Chem 7: 02/03/19 07:14 02/03/19 07:14 Labs: Laboratory Last Values WBC 5.2 K/mm3 (4.5-11.0) 02/03/19 07:14 RBC 3.83 M/mm3 (3.65-5.03) 02/03/19 07:14 Hgb 12.2 gm/dl (10.1-14.3) 02/03/19 07:14 Hct 35.7 % (30.3-42.9) 02/03/19 07:14 MCV 93 fl (79-97) 02/03/19 07:14 MCH 32 pg (28-32) 02/03/19 07:14 MCHC 34 % (30-34) 02/03/19 07:14 RDW 13.2 % (13.2-15.2) 02/03/19 07:14 Plt Count 150 K/mm3 (140-440) 02/03/19 07:14 Lymph % (Auto) 37.7 % (13.4-35.0) H 02/03/19 07:14 [place] % (Auto) 7.7 % (0.0-7.3) H 02/03/19 07:14 Eos % (Auto) 1.9 % (0.0-4.3) 02/03/19 07:14 Baso % (Auto) 0.7 % (0.0-1.8) 02/03/19 07:14 Lymph # 2.0 K/mm3 (1.2-5.4) 02/03/19 07:14 [place] # 0.4 K/mm3 (0.0-0.8) 02/03/19 07:14 Eos # 0.1 K/mm3 (0.0-0.4) 02/03/19 07:14 Baso # 0.0 K/mm3 (0.0-0.1) 02/03/19 07:14 Seg Neutrophils % 52.0 % (40.0-70.0) 02/03/19 07:14 Seg Neutrophils # 2.7 K/mm3 (1.8-7.7) 02/03/19 07:14 PT 13.6 Sec. (12.2-14.9) 02/02/19 16:12 INR 0.98 (0.87-1.13) 02/02/19 16:12 APTT 25.7 Sec. (24.2-36.6) 02/02/19 16:12 Thrombin Time 16.3 Sec. (15.1-19.6) 02/02/19 16:12 Sodium 141 mmol/L (137-145) 02/03/19 07:14 Potassium 4.7 mmol/L (3.6-5.0) D 02/03/19 07:14 Chloride 103.3 mmol/L (98-107) 02/03/19 07:14 Carbon Dioxide 29 mmol/L (22-30) 02/03/19 07:14 Anion Gap 13 mmol/L 02/03/19 07:14 BUN 20 mg/dL (7-17) H 02/03/19 07:14 Creatinine 1.0 mg/dL (0.7-1.2) 02/03/19 07:14 Estimated GFR > 60 ml/min 02/03/19 07:14 BUN/Creatinine Ratio 20 % 02/03/19 07:14 Glucose 100 mg/dL (65-100) 02/03/19 07:14 POC Glucose 69 (70-105) L 02/02/19 15:46 Hemoglobin A1c 5.4 % (4-6) 02/02/19 20:24 Calcium 9.1 mg/dL (8.4-10.2) 02/03/19 07:14 Total Bilirubin 0.70 mg/dL (0.1-1.2) 02/03/19 07:14 AST 16 units/L (5-40) 02/03/19 07:14 ALT 10 units/L (7-56) 02/03/19 07:14 Alkaline Phosphatase 54 units/L (35-129) 02/03/19 07:14 Troponin T < 0.010 ng/mL (0.00-0.029) 02/02/19 16:12 Total Protein 6.9 g/dL (6.3-8.2) 02/03/19 07:14 Albumin 3.4 g/dL (3.9-5) L 02/03/19 07:14 Albumin/Globulin Ratio 1.0 % 02/03/19 07:14 Triglycerides 42 mg/dL (2-149) 02/03/19 07:14 Cholesterol 133 mg/dL (50-199) 02/03/19 07:14 LDL Cholesterol Direct 70 mg/dL (50-130) 02/03/19 07:14 HDL Cholesterol 61 mg/dL (40-59) H 02/03/19 07:14 Cholesterol/HDL Ratio 2.18 % 02/03/19 07:14 Active Medications - Current Medications Current Medications: Generic Name Dose Route Start Last Admin Trade Name Freq PRN Reason Stop Dose Admin Acetaminophen 650 mg 02/02/19 18:22 02/04/19 15:46 Tylenol PO 650 mg Q4H PRN Administration Pain MILD(1-3)/Fever >100.5/[place] Atorvastatin Calcium 80 mg 02/02/19 22:00 02/05/19 21:20 Lipitor PO 80 mg QHS NISH Administration Clopidogrel Bisulfate 75 mg 02/03/19 10:00 02/05/19 09:33 Plavix PO 75 mg QDAY NISH Administration Enoxaparin Sodium 40 mg 02/02/19 22:00 02/05/19 21:21 Lovenox SUB-Q 40 mg QDAY@2200 NISH Administration Escitalopram Oxalate 30 mg 02/02/19 19:00 02/05/19 09:33 Lexapro PO 30 mg DAILY NISH Administration Hydromorphone HCl 0.25 mg 02/02/19 18:23 Dilaudid IV Q3H PRN Pain, Moderate (4-6) Levetiracetam 750 mg 02/05/19 10:00 02/05/19 21:20 Keppra PO 750 mg BID NISH Administration Lisinopril 20 mg 02/02/19 19:00 02/05/19 09:33 Zestril PO 20 mg QDAY NISH Administration Ondansetron HCl 4 mg 02/02/19 18:22 Zofran IV Q8H PRN Nausea And Vomiting Sodium Chloride 10 ml 02/02/19 22:00 02/05/19 21:20 Sodium Chloride Flush Syringe 10 Ml IV 10 ml BID NISH Administration Sodium Chloride 10 ml 02/02/19 18:22 Sodium Chloride Flush Syringe 10 Ml IV PRN PRN LINE FLUSH
[2019-02-06] MEDS: KEPPRA PO SCH ×2 (09:56→21:31)
[2019-02-06] MEDS: LEXAPRO PO SCH (09:57)
[2019-02-06] MEDS: ZESTRIL PO SCH (09:58)
[2019-02-06] MEDS: PLAVIX PO SCH (09:58)
[2019-02-06] MEDS: SODIUM CHLORIDE FLUSH SYRINGE 10 ML IV SCH ×2 (09:59→21:33)
--- NOTE | 2019-02-06 13:47 | Progress Note ---
Assessment and Plan Assessment and plan: Left sided weakness MRI Brain no acute stroke, but chronic microbleeds Patient seen by PT and recommends subacute rehab History of stroke Neurology following Plavix Hypertension Resumed Lisinopril Hyperlipidemia Lipitor Depression On Lexapro Dispo:For subacute rehab placement as recommended by PT Full code status - Patient Problems (1) Acute CVA (cerebrovascular accident) Current Visit: Yes Status: Acute (2) New onset seizure Current Visit: Yes Status: Acute (3) Depression Current Visit: Yes Status: Chronic Qualifiers: Depression Type: unspecified Qualified Code(s): F32.9 - Major depressive disorder, single episode, unspecified (4) Hyperlipidemia Current Visit: Yes Status: Chronic Qualifiers: Hyperlipidemia type: mixed hyperlipidemia Qualified Code(s): E78.2 - Mixed hyperlipidemia (5) Hypertension Current Visit: Yes Status: Chronic Qualifiers: Hypertension type: essential hypertension Qualified Code(s): I10 - Essential (primary) hypertension History Interval history: No new issues overnight Hospitalist Physical - Constitutional Vitals: Temp Pulse Resp BP Pulse Ox 98.7 F 74 16 117/73 96 02/06/19 09:34 02/06/19 09:58 02/06/19 09:34 02/06/19 09:58 02/06/19 09:34 General appearance: Present: no acute distress, well-nourished - EENT Eyes: Present: PERRL, EOM intact ENT: hearing intact, clear oral mucosa, dentition normal - Neck Neck: Present: supple, normal ROM - Respiratory Respiratory effort: normal Respiratory: bilateral: CTA - Cardiovascular Rhythm: regular Heart Sounds: Present: S1 & S2. Absent: gallop, rub - Extremities Extremities: no ischemia, No edema, Full ROM - Abdominal General gastrointestinal: soft, non-tender, non-distended, normal bowel sounds - Integumentary Integumentary: Present: clear, warm, dry - Neurologic Neurologic: CNII-XII intact, moves all extremities Results - Labs CBC & Chem 7: 02/03/19 07:14 02/03/19 07:14 Labs: Laboratory Last Values WBC 5.2 K/mm3 (4.5-11.0) 02/03/19 07:14 RBC 3.83 M/mm3 (3.65-5.03) 02/03/19 07:14 Hgb 12.2 gm/dl (10.1-14.3) 02/03/19 07:14 Hct 35.7 % (30.3-42.9) 02/03/19 07:14 MCV 93 fl (79-97) 02/03/19 07:14 MCH 32 pg (28-32) 02/03/19 07:14 MCHC 34 % (30-34) 02/03/19 07:14 RDW 13.2 % (13.2-15.2) 02/03/19 07:14 Plt Count 150 K/mm3 (140-440) 02/03/19 07:14 Lymph % (Auto) 37.7 % (13.4-35.0) H 02/03/19 07:14 [place] % (Auto) 7.7 % (0.0-7.3) H 02/03/19 07:14 Eos % (Auto) 1.9 % (0.0-4.3) 02/03/19 07:14 Baso % (Auto) 0.7 % (0.0-1.8) 02/03/19 07:14 Lymph # 2.0 K/mm3 (1.2-5.4) 02/03/19 07:14 [place] # 0.4 K/mm3 (0.0-0.8) 02/03/19 07:14 Eos # 0.1 K/mm3 (0.0-0.4) 02/03/19 07:14 Baso # 0.0 K/mm3 (0.0-0.1) 02/03/19 07:14 Seg Neutrophils % 52.0 % (40.0-70.0) 02/03/19 07:14 Seg Neutrophils # 2.7 K/mm3 (1.8-7.7) 02/03/19 07:14 PT 13.6 Sec. (12.2-14.9) 02/02/19 16:12 INR 0.98 (0.87-1.13) 02/02/19 16:12 APTT 25.7 Sec. (24.2-36.6) 02/02/19 16:12 Thrombin Time 16.3 Sec. (15.1-19.6) 02/02/19 16:12 Sodium 141 mmol/L (137-145) 02/03/19 07:14 Potassium 4.7 mmol/L (3.6-5.0) D 02/03/19 07:14 Chloride 103.3 mmol/L (98-107) 02/03/19 07:14 Carbon Dioxide 29 mmol/L (22-30) 02/03/19 07:14 Anion Gap 13 mmol/L 02/03/19 07:14 BUN 20 mg/dL (7-17) H 02/03/19 07:14 Creatinine 1.0 mg/dL (0.7-1.2) 02/03/19 07:14 Estimated GFR > 60 ml/min 02/03/19 07:14 BUN/Creatinine Ratio 20 % 02/03/19 07:14 Glucose 100 mg/dL (65-100) 02/03/19 07:14 POC Glucose 69 (70-105) L 02/02/19 15:46 Hemoglobin A1c 5.4 % (4-6) 02/02/19 20:24 Calcium 9.1 mg/dL (8.4-10.2) 02/03/19 07:14 Total Bilirubin 0.70 mg/dL (0.1-1.2) 02/03/19 07:14 AST 16 units/L (5-40) 02/03/19 07:14 ALT 10 units/L (7-56) 02/03/19 07:14 Alkaline Phosphatase 54 units/L (35-129) 02/03/19 07:14 Troponin T < 0.010 ng/mL (0.00-0.029) 02/02/19 16:12 Total Protein 6.9 g/dL (6.3-8.2) 02/03/19 07:14 Albumin 3.4 g/dL (3.9-5) L 02/03/19 07:14 Albumin/Globulin Ratio 1.0 % 02/03/19 07:14 Triglycerides 42 mg/dL (2-149) 02/03/19 07:14 Cholesterol 133 mg/dL (50-199) 02/03/19 07:14 LDL Cholesterol Direct 70 mg/dL (50-130) 02/03/19 07:14 HDL Cholesterol 61 mg/dL (40-59) H 02/03/19 07:14 Cholesterol/HDL Ratio 2.18 % 02/03/19 07:14 Active Medications - Current Medications Current Medications: Generic Name Dose Route Start Last Admin Trade Name Freq PRN Reason Stop Dose Admin Acetaminophen 650 mg 02/02/19 18:22 02/04/19 15:46 Tylenol PO 650 mg Q4H PRN Administration Pain MILD(1-3)/Fever >100.5/[place] Atorvastatin Calcium 80 mg 02/02/19 22:00 02/05/19 21:20 Lipitor PO 80 mg QHS NISH Administration Clopidogrel Bisulfate 75 mg 02/03/19 10:00 02/06/19 09:58 Plavix PO 75 mg QDAY NISH Administration Enoxaparin Sodium 40 mg 02/02/19 22:00 02/05/19 21:21 Lovenox SUB-Q 40 mg QDAY@2200 NISH Administration Escitalopram Oxalate 30 mg 02/02/19 19:00 02/06/19 09:57 Lexapro PO 30 mg DAILY NISH Administration Hydromorphone HCl 0.25 mg 02/02/19 18:23 Dilaudid IV Q3H PRN Pain, Moderate (4-6) Levetiracetam 750 mg 02/05/19 10:00 02/06/19 09:56 Keppra PO 750 mg BID NISH Administration Lisinopril 20 mg 02/02/19 19:00 02/06/19 09:58 Zestril PO 20 mg QDAY NISH Administration Ondansetron HCl 4 mg 02/02/19 18:22 Zofran IV Q8H PRN Nausea And Vomiting Sodium Chloride 10 ml 02/02/19 22:00 02/06/19 09:59 Sodium Chloride Flush Syringe 10 Ml IV 10 ml BID NISH Administration Sodium Chloride 10 ml 02/02/19 18:22 Sodium Chloride Flush Syringe 10 Ml IV PRN PRN LINE FLUSH
[2019-02-06] MEDS: LOVENOX SUB-Q SCH (21:32)
[2019-02-07] MEDS: LEXAPRO PO SCH (10:02)
[2019-02-07] MEDS: PLAVIX PO SCH (10:02)
[2019-02-07] MEDS: KEPPRA PO SCH ×2 (10:02→21:28)
[2019-02-07] MEDS: ZESTRIL PO SCH (10:03)
[2019-02-07] MEDS: SODIUM CHLORIDE FLUSH SYRINGE 10 ML IV SCH ×2 (10:03→21:29)
[2019-02-07] MEDS: LOVENOX SUB-Q SCH (21:29)
[2019-02-08] MEDS: LEXAPRO PO SCH (09:45)
[2019-02-08] MEDS: PLAVIX PO SCH (09:45)
[2019-02-08] MEDS: KEPPRA PO SCH ×2 (09:45→22:06)
[2019-02-08] MEDS: ZESTRIL PO SCH (09:46)
--- NOTE | 2019-02-08 12:58 | Progress Note ---
Assessment and Plan Assessment and plan: Left sided weakness MRI Brain no acute stroke, but chronic microbleeds Patient seen by PT and recommends subacute rehab History of stroke Neurology following Plavix Hypertension Resumed Lisinopril Hyperlipidemia Lipitor Depression On Lexapro Dispo:For subacute rehab placement as recommended by PT Full code status - Patient Problems (1) Acute CVA (cerebrovascular accident) Current Visit: Yes Status: Acute (2) New onset seizure Current Visit: Yes Status: Acute (3) Depression Current Visit: Yes Status: Chronic Qualifiers: Depression Type: unspecified Qualified Code(s): F32.9 - Major depressive disorder, single episode, unspecified (4) Hyperlipidemia Current Visit: Yes Status: Chronic Qualifiers: Hyperlipidemia type: mixed hyperlipidemia Qualified Code(s): E78.2 - Mixed hyperlipidemia (5) Hypertension Current Visit: Yes Status: Chronic Qualifiers: Hypertension type: essential hypertension Qualified Code(s): I10 - Essential (primary) hypertension History Interval history: No new issues overnight Hospitalist Physical - Constitutional Vitals: Temp Pulse Resp BP Pulse Ox 98.2 F 49 L 20 122/52 97 02/08/19 12:34 02/08/19 12:34 02/08/19 12:34 02/08/19 12:34 02/08/19 12:34 General appearance: Present: no acute distress, well-nourished - EENT Eyes: Present: PERRL, EOM intact ENT: hearing intact, clear oral mucosa, dentition normal - Neck Neck: Present: supple, normal ROM - Respiratory Respiratory effort: normal Respiratory: bilateral: CTA - Cardiovascular Rhythm: regular Heart Sounds: Present: S1 & S2. Absent: gallop, rub - Extremities Extremities: no ischemia, No edema, Full ROM - Abdominal General gastrointestinal: soft, non-tender, non-distended, normal bowel sounds - Integumentary Integumentary: Present: clear, warm, dry - Neurologic Neurologic: CNII-XII intact, moves all extremities Results - Labs CBC & Chem 7: 02/03/19 07:14 02/03/19 07:14 Labs: Laboratory Last Values WBC 5.2 K/mm3 (4.5-11.0) 02/03/19 07:14 RBC 3.83 M/mm3 (3.65-5.03) 02/03/19 07:14 Hgb 12.2 gm/dl (10.1-14.3) 02/03/19 07:14 Hct 35.7 % (30.3-42.9) 02/03/19 07:14 MCV 93 fl (79-97) 02/03/19 07:14 MCH 32 pg (28-32) 02/03/19 07:14 MCHC 34 % (30-34) 02/03/19 07:14 RDW 13.2 % (13.2-15.2) 02/03/19 07:14 Plt Count 150 K/mm3 (140-440) 02/03/19 07:14 Lymph % (Auto) 37.7 % (13.4-35.0) H 02/03/19 07:14 [place] % (Auto) 7.7 % (0.0-7.3) H 02/03/19 07:14 Eos % (Auto) 1.9 % (0.0-4.3) 02/03/19 07:14 Baso % (Auto) 0.7 % (0.0-1.8) 02/03/19 07:14 Lymph # 2.0 K/mm3 (1.2-5.4) 02/03/19 07:14 [place] # 0.4 K/mm3 (0.0-0.8) 02/03/19 07:14 Eos # 0.1 K/mm3 (0.0-0.4) 02/03/19 07:14 Baso # 0.0 K/mm3 (0.0-0.1) 02/03/19 07:14 Seg Neutrophils % 52.0 % (40.0-70.0) 02/03/19 07:14 Seg Neutrophils # 2.7 K/mm3 (1.8-7.7) 02/03/19 07:14 PT 13.6 Sec. (12.2-14.9) 02/02/19 16:12 INR 0.98 (0.87-1.13) 02/02/19 16:12 APTT 25.7 Sec. (24.2-36.6) 02/02/19 16:12 Thrombin Time 16.3 Sec. (15.1-19.6) 02/02/19 16:12 Sodium 141 mmol/L (137-145) 02/03/19 07:14 Potassium 4.7 mmol/L (3.6-5.0) D 02/03/19 07:14 Chloride 103.3 mmol/L (98-107) 02/03/19 07:14 Carbon Dioxide 29 mmol/L (22-30) 02/03/19 07:14 Anion Gap 13 mmol/L 02/03/19 07:14 BUN 20 mg/dL (7-17) H 02/03/19 07:14 Creatinine 1.0 mg/dL (0.7-1.2) 02/03/19 07:14 Estimated GFR > 60 ml/min 02/03/19 07:14 BUN/Creatinine Ratio 20 % 02/03/19 07:14 Glucose 100 mg/dL (65-100) 02/03/19 07:14 POC Glucose 69 (70-105) L 02/02/19 15:46 Hemoglobin A1c 5.4 % (4-6) 02/02/19 20:24 Calcium 9.1 mg/dL (8.4-10.2) 02/03/19 07:14 Total Bilirubin 0.70 mg/dL (0.1-1.2) 02/03/19 07:14 AST 16 units/L (5-40) 02/03/19 07:14 ALT 10 units/L (7-56) 02/03/19 07:14 Alkaline Phosphatase 54 units/L (35-129) 02/03/19 07:14 Troponin T < 0.010 ng/mL (0.00-0.029) 02/02/19 16:12 Total Protein 6.9 g/dL (6.3-8.2) 02/03/19 07:14 Albumin 3.4 g/dL (3.9-5) L 02/03/19 07:14 Albumin/Globulin Ratio 1.0 % 02/03/19 07:14 Triglycerides 42 mg/dL (2-149) 02/03/19 07:14 Cholesterol 133 mg/dL (50-199) 02/03/19 07:14 LDL Cholesterol Direct 70 mg/dL (50-130) 02/03/19 07:14 HDL Cholesterol 61 mg/dL (40-59) H 02/03/19 07:14 Cholesterol/HDL Ratio 2.18 % 02/03/19 07:14 Active Medications - Current Medications Current Medications: Generic Name Dose Route Start Last Admin Trade Name Freq PRN Reason Stop Dose Admin Acetaminophen 650 mg 02/02/19 18:22 02/04/19 15:46 Tylenol PO 650 mg Q4H PRN Administration Pain MILD(1-3)/Fever >100.5/[place] Atorvastatin Calcium 80 mg 02/02/19 22:00 02/07/19 21:29 Lipitor PO 80 mg QHS NISH Administration Clopidogrel Bisulfate 75 mg 02/03/19 10:00 02/08/19 09:45 Plavix PO 75 mg QDAY NISH Administration Enoxaparin Sodium 40 mg 02/02/19 22:00 02/07/19 21:29 Lovenox SUB-Q 40 mg QDAY@2200 NISH Administration Escitalopram Oxalate 30 mg 02/02/19 19:00 02/08/19 09:45 Lexapro PO 30 mg DAILY NISH Administration Hydromorphone HCl 0.25 mg 02/02/19 18:23 Dilaudid IV Q3H PRN Pain, Moderate (4-6) Levetiracetam 750 mg 02/05/19 10:00 02/08/19 09:45 Keppra PO 750 mg BID NISH Administration Lisinopril 20 mg 02/02/19 19:00 02/08/19 09:46 Zestril PO 20 mg QDAY NISH Administration Ondansetron HCl 4 mg 02/02/19 18:22 Zofran IV Q8H PRN Nausea And Vomiting Sodium Chloride 10 ml 02/02/19 22:00 02/07/19 21:29 Sodium Chloride Flush Syringe 10 Ml IV 10 ml BID NISH Administration Sodium Chloride 10 ml 02/02/19 18:22 Sodium Chloride Flush Syringe 10 Ml IV PRN PRN LINE FLUSH Nutrition/Malnutrition Assess - Dietary Evaluation Nutrition/Malnutrition Findings: Nutrition Notes Start: 02/07/19 11:11 Freq: Status: Active Protocol: Document 02/07/19 11:11 RM (Rec: 02/07/19 11:22 RM [email or web address]) Nutrition Notes Need for Assessment generated from: LOS Initial or Follow up Brief Note Current Diagnosis Hypertension,Hyperlipidemia Other Pertinent Diagnosis Depression, Hx CVAs, Seizures Current Diet Cardiac Labs/Tests Reviewed Pertinent Medications Reviewed Height 4 ft 5 in Weight 65.4 kg [place] Body Weight (kg) 29.54 BMI 36.1 Subjective/Other Information Screened for LOS. Pt asleep at time of visit. No family present. Noted breakfast at bedside w/25% eaten. Recorded PO intake 60% X 4 meals. Percent of energy/protein needs met: 40%/44% Burn Absent Trauma Absent Is patient on ventilator? No Is Patient Ambulatory and/or Out of Bed No REE-([facility]-confined to bed) 1122.240 Kcal/Kg value to use for calculation 20 Approximate Energy Requirements Using 1308 kcal/Kg Calculation Used for Recommendations Kcal/kg Additional Notes Protein Needs: 47-67g (1-1.2g/ kg adjBW) Fluid Needs: 1 ml/kcal Nutrition Intervention Follow-Up By: 02/11/19 Additional Comments Follow for stable intakes
[2019-02-08] MEDS: SODIUM CHLORIDE FLUSH SYRINGE 10 ML IV SCH ×2 (14:45→22:10)
[2019-02-08] MEDS: LOVENOX SUB-Q SCH (21:10)
[2019-02-09] MEDS: PLAVIX PO SCH (10:01)
[2019-02-09] MEDS: SODIUM CHLORIDE FLUSH SYRINGE 10 ML IV SCH ×2 (10:01→21:27)
[2019-02-09] MEDS: KEPPRA PO SCH ×2 (10:01→21:20)
[2019-02-09] MEDS: LEXAPRO PO SCH (10:01)
[2019-02-09] MEDS: ZESTRIL PO SCH (10:02)
--- NOTE | 2019-02-09 10:57 | Progress Note ---
Assessment and Plan Assessment and plan: Left sided weakness MRI Brain no acute stroke, but chronic microbleeds Patient seen by PT and recommends subacute rehab History of stroke Neurology following Plavix added Hypertension Controlled with Lisinopril Hyperlipidemia Cont. Lipitor Depression On Lexapro Dispo:For subacute rehab placement as recommended by PT Full code status - Patient Problems (1) Acute CVA (cerebrovascular accident) Current Visit: Yes Status: Acute (2) New onset seizure Current Visit: Yes Status: Acute (3) Depression Current Visit: Yes Status: Chronic Qualifiers: Depression Type: unspecified Qualified Code(s): F32.9 - Major depressive disorder, single episode, unspecified (4) Hyperlipidemia Current Visit: Yes Status: Chronic Qualifiers: Hyperlipidemia type: mixed hyperlipidemia Qualified Code(s): E78.2 - Mixed hyperlipidemia (5) Hypertension Current Visit: Yes Status: Chronic Qualifiers: Hypertension type: essential hypertension Qualified Code(s): I10 - Essential (primary) hypertension History Interval history: No new issues overnight Hospitalist Physical - Constitutional Vitals: Temp Pulse Resp BP Pulse Ox 98.0 F 47 L 18 156/60 95 02/09/19 07:44 02/09/19 10:02 02/09/19 07:44 02/09/19 10:02 02/09/19 07:44 General appearance: Present: no acute distress, well-nourished - EENT Eyes: Present: PERRL, EOM intact ENT: hearing intact, clear oral mucosa, dentition normal - Neck Neck: Present: supple, normal ROM - Respiratory Respiratory effort: normal Respiratory: bilateral: CTA - Cardiovascular Rhythm: regular Heart Sounds: Present: S1 & S2. Absent: gallop, rub - Extremities Extremities: no ischemia, No edema, Full ROM - Abdominal General gastrointestinal: soft, non-tender, non-distended, normal bowel sounds - Integumentary Integumentary: Present: clear, warm, dry - Neurologic Neurologic: CNII-XII intact, moves all extremities Results - Labs CBC & Chem 7: 02/03/19 07:14 02/03/19 07:14 Labs: Laboratory Last Values WBC 5.2 K/mm3 (4.5-11.0) 02/03/19 07:14 RBC 3.83 M/mm3 (3.65-5.03) 02/03/19 07:14 Hgb 12.2 gm/dl (10.1-14.3) 02/03/19 07:14 Hct 35.7 % (30.3-42.9) 02/03/19 07:14 MCV 93 fl (79-97) 02/03/19 07:14 MCH 32 pg (28-32) 02/03/19 07:14 MCHC 34 % (30-34) 02/03/19 07:14 RDW 13.2 % (13.2-15.2) 02/03/19 07:14 Plt Count 150 K/mm3 (140-440) 02/03/19 07:14 Lymph % (Auto) 37.7 % (13.4-35.0) H 02/03/19 07:14 [place] % (Auto) 7.7 % (0.0-7.3) H 02/03/19 07:14 Eos % (Auto) 1.9 % (0.0-4.3) 02/03/19 07:14 Baso % (Auto) 0.7 % (0.0-1.8) 02/03/19 07:14 Lymph # 2.0 K/mm3 (1.2-5.4) 02/03/19 07:14 [place] # 0.4 K/mm3 (0.0-0.8) 02/03/19 07:14 Eos # 0.1 K/mm3 (0.0-0.4) 02/03/19 07:14 Baso # 0.0 K/mm3 (0.0-0.1) 02/03/19 07:14 Seg Neutrophils % 52.0 % (40.0-70.0) 02/03/19 07:14 Seg Neutrophils # 2.7 K/mm3 (1.8-7.7) 02/03/19 07:14 PT 13.6 Sec. (12.2-14.9) 02/02/19 16:12 INR 0.98 (0.87-1.13) 02/02/19 16:12 APTT 25.7 Sec. (24.2-36.6) 02/02/19 16:12 Thrombin Time 16.3 Sec. (15.1-19.6) 02/02/19 16:12 Sodium 141 mmol/L (137-145) 02/03/19 07:14 Potassium 4.7 mmol/L (3.6-5.0) D 02/03/19 07:14 Chloride 103.3 mmol/L (98-107) 02/03/19 07:14 Carbon Dioxide 29 mmol/L (22-30) 02/03/19 07:14 Anion Gap 13 mmol/L 02/03/19 07:14 BUN 20 mg/dL (7-17) H 02/03/19 07:14 Creatinine 1.0 mg/dL (0.7-1.2) 02/03/19 07:14 Estimated GFR > 60 ml/min 02/03/19 07:14 BUN/Creatinine Ratio 20 % 02/03/19 07:14 Glucose 100 mg/dL (65-100) 02/03/19 07:14 POC Glucose 69 (70-105) L 02/02/19 15:46 Hemoglobin A1c 5.4 % (4-6) 02/02/19 20:24 Calcium 9.1 mg/dL (8.4-10.2) 02/03/19 07:14 Total Bilirubin 0.70 mg/dL (0.1-1.2) 02/03/19 07:14 AST 16 units/L (5-40) 02/03/19 07:14 ALT 10 units/L (7-56) 02/03/19 07:14 Alkaline Phosphatase 54 units/L (35-129) 02/03/19 07:14 Troponin T < 0.010 ng/mL (0.00-0.029) 02/02/19 16:12 Total Protein 6.9 g/dL (6.3-8.2) 02/03/19 07:14 Albumin 3.4 g/dL (3.9-5) L 02/03/19 07:14 Albumin/Globulin Ratio 1.0 % 02/03/19 07:14 Triglycerides 42 mg/dL (2-149) 02/03/19 07:14 Cholesterol 133 mg/dL (50-199) 02/03/19 07:14 LDL Cholesterol Direct 70 mg/dL (50-130) 02/03/19 07:14 HDL Cholesterol 61 mg/dL (40-59) H 02/03/19 07:14 Cholesterol/HDL Ratio 2.18 % 02/03/19 07:14 Active Medications - Current Medications Current Medications: Generic Name Dose Route Start Last Admin Trade Name Freq PRN Reason Stop Dose Admin Acetaminophen 650 mg 02/02/19 18:22 02/04/19 15:46 Tylenol PO 650 mg Q4H PRN Administration Pain MILD(1-3)/Fever >100.5/[place] Atorvastatin Calcium 80 mg 02/02/19 22:00 02/08/19 21:08 Lipitor PO 80 mg QHS NISH Administration Clopidogrel Bisulfate 75 mg 02/03/19 10:00 02/09/19 10:01 Plavix PO 75 mg QDAY NISH Administration Enoxaparin Sodium 40 mg 02/02/19 22:00 02/08/19 21:10 Lovenox SUB-Q 40 mg QDAY@2200 NISH Administration Escitalopram Oxalate 30 mg 02/02/19 19:00 02/09/19 10:01 Lexapro PO 30 mg DAILY NISH Administration Hydromorphone HCl 0.25 mg 02/02/19 18:23 Dilaudid IV Q3H PRN Pain, Moderate (4-6) Levetiracetam 750 mg 02/05/19 10:00 02/09/19 10:01 Keppra PO 750 mg BID NISH Administration Lisinopril 20 mg 02/02/19 19:00 02/09/19 10:02 Zestril PO 20 mg QDAY NISH Administration Ondansetron HCl 4 mg 02/02/19 18:22 Zofran IV Q8H PRN Nausea And Vomiting Sodium Chloride 10 ml 02/02/19 22:00 02/09/19 10:01 Sodium Chloride Flush Syringe 10 Ml IV 10 ml BID NISH Administration Sodium Chloride 10 ml 02/02/19 18:22 Sodium Chloride Flush Syringe 10 Ml IV PRN PRN LINE FLUSH Nutrition/Malnutrition Assess - Dietary Evaluation Nutrition/Malnutrition Findings: Nutrition Notes Start: 02/07/19 11:11 Freq: Status: Active Protocol: Document 02/07/19 11:11 RM (Rec: 02/07/19 11:22 RM [email or web address]) Nutrition Notes Need for Assessment generated from: LOS Initial or Follow up Brief Note Current Diagnosis Hypertension,Hyperlipidemia Other Pertinent Diagnosis Depression, Hx CVAs, Seizures Current Diet Cardiac Labs/Tests Reviewed Pertinent Medications Reviewed Height 4 ft 5 in Weight 65.4 kg [facility] Body Weight (kg) 29.54 BMI 36.1 Subjective/Other Information Screened for LOS. Pt asleep at time of visit. No family present. Noted breakfast at bedside w/25% eaten. Recorded PO intake 60% X 4 meals. Percent of energy/protein needs met: 40%/44% Burn Absent Trauma Absent Is patient on ventilator? No Is Patient Ambulatory and/or Out of Bed No REE-([facility]-confined to bed) 1122.240 Kcal/Kg value to use for calculation 20 Approximate Energy Requirements Using 1308 kcal/Kg Calculation Used for Recommendations Kcal/kg Additional Notes Protein Needs: 47-67g (1-1.2g/ kg adjBW) Fluid Needs: 1 ml/kcal Nutrition Intervention Follow-Up By: 02/11/19 Additional Comments Follow for stable intakes
[2019-02-09] MEDS: LOVENOX SUB-Q SCH (21:26)
--- NOTE | 2019-02-10 09:23 | Progress Note ---
Assessment and Plan Assessment and plan: Left sided weakness MRI Brain no acute stroke, but chronic microbleeds Patient seen by PT and recommends subacute rehab History of stroke Neurology following Plavix added Hypertension Controlled with Lisinopril Hyperlipidemia Cont. Lipitor Depression On Lexapro Dispo:For subacute rehab placement as recommended by PT Full code status - Patient Problems (1) Acute CVA (cerebrovascular accident) Current Visit: Yes Status: Acute (2) New onset seizure Current Visit: Yes Status: Acute (3) Depression Current Visit: Yes Status: Chronic Qualifiers: Depression Type: unspecified Qualified Code(s): F32.9 - Major depressive disorder, single episode, unspecified (4) Hyperlipidemia Current Visit: Yes Status: Chronic Qualifiers: Hyperlipidemia type: mixed hyperlipidemia Qualified Code(s): E78.2 - Mixed hyperlipidemia (5) Hypertension Current Visit: Yes Status: Chronic Qualifiers: Hypertension type: essential hypertension Qualified Code(s): I10 - Essential (primary) hypertension History Interval history: No new issues overnight Hospitalist Physical - Constitutional Vitals: Temp Pulse Resp BP Pulse Ox 98.8 F 53 L 18 127/56 97 02/10/19 07:30 02/10/19 07:30 02/10/19 07:30 02/10/19 07:30 02/10/19 07:30 General appearance: Present: no acute distress, well-nourished - EENT Eyes: Present: PERRL, EOM intact ENT: hearing intact, clear oral mucosa, dentition normal - Neck Neck: Present: supple, normal ROM - Respiratory Respiratory effort: normal Respiratory: bilateral: CTA - Cardiovascular Rhythm: regular Heart Sounds: Present: S1 & S2. Absent: gallop, rub - Extremities Extremities: no ischemia, No edema, Full ROM - Abdominal General gastrointestinal: soft, non-tender, non-distended, normal bowel sounds - Integumentary Integumentary: Present: clear, warm, dry - Neurologic Neurologic: CNII-XII intact, moves all extremities Results - Labs CBC & Chem 7: 02/03/19 07:14 02/03/19 07:14 Labs: Laboratory Last Values WBC 5.2 K/mm3 (4.5-11.0) 02/03/19 07:14 RBC 3.83 M/mm3 (3.65-5.03) 02/03/19 07:14 Hgb 12.2 gm/dl (10.1-14.3) 02/03/19 07:14 Hct 35.7 % (30.3-42.9) 02/03/19 07:14 MCV 93 fl (79-97) 02/03/19 07:14 MCH 32 pg (28-32) 02/03/19 07:14 MCHC 34 % (30-34) 02/03/19 07:14 RDW 13.2 % (13.2-15.2) 02/03/19 07:14 Plt Count 150 K/mm3 (140-440) 02/03/19 07:14 Lymph % (Auto) 37.7 % (13.4-35.0) H 02/03/19 07:14 [place] % (Auto) 7.7 % (0.0-7.3) H 02/03/19 07:14 Eos % (Auto) 1.9 % (0.0-4.3) 02/03/19 07:14 Baso % (Auto) 0.7 % (0.0-1.8) 02/03/19 07:14 Lymph # 2.0 K/mm3 (1.2-5.4) 02/03/19 07:14 [place] # 0.4 K/mm3 (0.0-0.8) 02/03/19 07:14 Eos # 0.1 K/mm3 (0.0-0.4) 02/03/19 07:14 Baso # 0.0 K/mm3 (0.0-0.1) 02/03/19 07:14 Seg Neutrophils % 52.0 % (40.0-70.0) 02/03/19 07:14 Seg Neutrophils # 2.7 K/mm3 (1.8-7.7) 02/03/19 07:14 PT 13.6 Sec. (12.2-14.9) 02/02/19 16:12 INR 0.98 (0.87-1.13) 02/02/19 16:12 APTT 25.7 Sec. (24.2-36.6) 02/02/19 16:12 Thrombin Time 16.3 Sec. (15.1-19.6) 02/02/19 16:12 Sodium 141 mmol/L (137-145) 02/03/19 07:14 Potassium 4.7 mmol/L (3.6-5.0) D 02/03/19 07:14 Chloride 103.3 mmol/L (98-107) 02/03/19 07:14 Carbon Dioxide 29 mmol/L (22-30) 02/03/19 07:14 Anion Gap 13 mmol/L 02/03/19 07:14 BUN 20 mg/dL (7-17) H 02/03/19 07:14 Creatinine 1.0 mg/dL (0.7-1.2) 02/03/19 07:14 Estimated GFR > 60 ml/min 02/03/19 07:14 BUN/Creatinine Ratio 20 % 02/03/19 07:14 Glucose 100 mg/dL (65-100) 02/03/19 07:14 POC Glucose 69 (70-105) L 02/02/19 15:46 Hemoglobin A1c 5.4 % (4-6) 02/02/19 20:24 Calcium 9.1 mg/dL (8.4-10.2) 02/03/19 07:14 Total Bilirubin 0.70 mg/dL (0.1-1.2) 02/03/19 07:14 AST 16 units/L (5-40) 02/03/19 07:14 ALT 10 units/L (7-56) 02/03/19 07:14 Alkaline Phosphatase 54 units/L (35-129) 02/03/19 07:14 Troponin T < 0.010 ng/mL (0.00-0.029) 02/02/19 16:12 Total Protein 6.9 g/dL (6.3-8.2) 02/03/19 07:14 Albumin 3.4 g/dL (3.9-5) L 02/03/19 07:14 Albumin/Globulin Ratio 1.0 % 02/03/19 07:14 Triglycerides 42 mg/dL (2-149) 02/03/19 07:14 Cholesterol 133 mg/dL (50-199) 02/03/19 07:14 LDL Cholesterol Direct 70 mg/dL (50-130) 02/03/19 07:14 HDL Cholesterol 61 mg/dL (40-59) H 02/03/19 07:14 Cholesterol/HDL Ratio 2.18 % 02/03/19 07:14 Active Medications - Current Medications Current Medications: Generic Name Dose Route Start Last Admin Trade Name Freq PRN Reason Stop Dose Admin Acetaminophen 650 mg 02/02/19 18:22 02/04/19 15:46 Tylenol PO 650 mg Q4H PRN Administration Pain MILD(1-3)/Fever >100.5/[place] Atorvastatin Calcium 80 mg 02/02/19 22:00 02/09/19 21:23 Lipitor PO 80 mg QHS NISH Administration Clopidogrel Bisulfate 75 mg 02/03/19 10:00 02/09/19 10:01 Plavix PO 75 mg QDAY NISH Administration Enoxaparin Sodium 40 mg 02/02/19 22:00 02/09/19 21:26 Lovenox SUB-Q 40 mg QDAY@2200 NISH Administration Escitalopram Oxalate 30 mg 02/02/19 19:00 02/09/19 10:01 Lexapro PO 30 mg DAILY NISH Administration Hydromorphone HCl 0.25 mg 02/02/19 18:23 Dilaudid IV Q3H PRN Pain, Moderate (4-6) Levetiracetam 750 mg 02/05/19 10:00 02/09/19 21:20 Keppra PO 750 mg BID NISH Administration Lisinopril 20 mg 02/02/19 19:00 02/09/19 10:02 Zestril PO 20 mg QDAY NISH Administration Ondansetron HCl 4 mg 02/02/19 18:22 Zofran IV Q8H PRN Nausea And Vomiting Sodium Chloride 10 ml 02/02/19 22:00 02/09/19 21:27 Sodium Chloride Flush Syringe 10 Ml IV 10 ml BID NISH Administration Sodium Chloride 10 ml 02/02/19 18:22 Sodium Chloride Flush Syringe 10 Ml IV PRN PRN LINE FLUSH Nutrition/Malnutrition Assess - Dietary Evaluation Nutrition/Malnutrition Findings: Nutrition Notes Start: 02/07/19 11:11 Freq: Status: Active Protocol: Document 02/07/19 11:11 RM (Rec: 02/07/19 11:22 RM [id number]) Nutrition Notes Need for Assessment generated from: LOS Initial or Follow up Brief Note Current Diagnosis Hypertension,Hyperlipidemia Other Pertinent Diagnosis Depression, Hx CVAs, Seizures Current Diet Cardiac Labs/Tests Reviewed Pertinent Medications Reviewed Height 4 ft 5 in Weight 65.4 kg [place] Body Weight (kg) 29.54 BMI 36.1 Subjective/Other Information Screened for LOS. Pt asleep at time of visit. No family present. Noted breakfast at bedside w/25% eaten. Recorded PO intake 60% X 4 meals. Percent of energy/protein needs met: 40%/44% Burn Absent Trauma Absent Is patient on ventilator? No Is Patient Ambulatory and/or Out of Bed No REE-([facility]-confined to bed) 1122.240 Kcal/Kg value to use for calculation 20 Approximate Energy Requirements Using 1308 kcal/Kg Calculation Used for Recommendations Kcal/kg Additional Notes Protein Needs: 47-67g (1-1.2g/ kg adjBW) Fluid Needs: 1 ml/kcal Nutrition Intervention Follow-Up By: 02/11/19 Additional Comments Follow for stable intakes
[2019-02-10] MEDS: LEXAPRO PO SCH (09:40)
[2019-02-10] MEDS: KEPPRA PO SCH ×2 (09:40→22:01)
[2019-02-10] MEDS: PLAVIX PO SCH (09:40)
[2019-02-10] MEDS: ZESTRIL PO SCH (09:41)
[2019-02-10] MEDS: SODIUM CHLORIDE FLUSH SYRINGE 10 ML IV SCH ×2 (09:41→22:02)
[2019-02-10] MEDS: LOVENOX SUB-Q SCH (22:02)
[2019-02-11 05:41] LABS: Basophils % (Auto) 0.4 % (0.0-1.8); Eosinophils # (Auto) 0.1 K/mm3 (0.0-0.4); Eosinophils % (Auto) 2.1 % (0.0-4.3); Hematocrit 37.8 % (30.3-42.9); Hemoglobin 12.7 gm/dl (10.1-14.3); Lymphocytes # (Auto) 2.1 K/mm3 (1.2-5.4); Lymphocytes % (Auto) 41.5 % (13.4-35.0); Mean Corpuscular HGB Conc 34 % (30-34); Mean Corpuscular Volume 93 fl (79-97); Monocytes # (Auto) 0.3 K/mm3 (0.0-0.8); Monocytes % (Auto) 6.9 % (0.0-7.3); Platelet Count 160 K/mm3 (140-440); Red Blood Count 4.05 M/mm3 (3.65-5.03); Red Cell Distribution Width 13.1 % (13.2-15.2)
[2019-02-11 06:02] LABS: BUN/Creatinine Ratio 19; Blood Urea Nitrogen 17 mg/dL (7-17); Calcium 9.1 mg/dL (8.4-10.2); Hemolysis Index 7
[2019-02-11] MEDS: LEXAPRO PO SCH (11:27)
[2019-02-11] MEDS: KEPPRA PO SCH ×2 (11:27→22:28)
[2019-02-11] MEDS: SODIUM CHLORIDE FLUSH SYRINGE 10 ML IV SCH ×2 (11:28→22:29)
[2019-02-11] MEDS: PLAVIX PO SCH (11:28)
--- NOTE | 2019-02-11 12:49 | Progress Note ---
Assessment and Plan Assessment and plan: Left sided weakness MRI Brain no acute stroke, but chronic microbleeds Patient seen by PT and recommends subacute rehab History of stroke Neurology following Plavix added Hypertension Controlled with Lisinopril Hyperlipidemia Cont. Lipitor Depression On Lexapro Dispo: Pending insurance authorization for subacute rehabilitation Full code status History Interval history: Patient was seen and evaluated this morning, patient didn't have any complaints Hospitalist Physical - Physical exam Narrative exam: Not in cardiopulmonary distress. The patient appeared well nourished and normally developed. Vital signs as documented. Head exam is unremarkable. No scleral icterus . Neck is without jugular venous distension, thyromegaly, or carotid bruits. Lungs are clear to auscultation. Cardiac exam reveals regular rate and Rhythm. Abdominal exam reveals normal bowel sounds, no masses, no organomegaly and no aortic enlargement. Extremities are nonedematous and both femoral and pedal pulses are normal. CHAIR: Alert and oriented 3. - Constitutional Vitals: Temp Pulse Resp BP Pulse Ox 98.6 F 45 L 18 145/61 97 02/11/19 09:59 02/11/19 09:59 02/11/19 09:59 02/11/19 09:59 02/11/19 09:59 General appearance: Present: no acute distress, well-nourished Results - Labs CBC & Chem 7: 02/11/19 05:21 02/11/19 05:21 Labs: Laboratory Last Values WBC 5.0 K/mm3 (4.5-11.0) 02/11/19 05:21 RBC 4.05 M/mm3 (3.65-5.03) 02/11/19 05:21 Hgb 12.7 gm/dl (10.1-14.3) 02/11/19 05:21 Hct 37.8 % (30.3-42.9) 02/11/19 05:21 MCV 93 fl (79-97) 02/11/19 05:21 MCH 31 pg (28-32) 02/11/19 05:21 MCHC 34 % (30-34) 02/11/19 05:21 RDW 13.1 % (13.2-15.2) L 02/11/19 05:21 Plt Count 160 K/mm3 (140-440) 02/11/19 05:21 Lymph % (Auto) 41.5 % (13.4-35.0) H 02/11/19 05:21 [place] % (Auto) 6.9 % (0.0-7.3) 02/11/19 05:21 Eos % (Auto) 2.1 % (0.0-4.3) 02/11/19 05:21 Baso % (Auto) 0.4 % (0.0-1.8) 02/11/19 05:21 Lymph # 2.1 K/mm3 (1.2-5.4) 02/11/19 05:21 [place] # 0.3 K/mm3 (0.0-0.8) 02/11/19 05:21 Eos # 0.1 K/mm3 (0.0-0.4) 02/11/19 05:21 Baso # 0.0 K/mm3 (0.0-0.1) 02/11/19 05:21 Seg Neutrophils % 49.1 % (40.0-70.0) 02/11/19 05:21 Seg Neutrophils # 2.5 K/mm3 (1.8-7.7) 02/11/19 05:21 PT 13.6 Sec. (12.2-14.9) 02/02/19 16:12 INR 0.98 (0.87-1.13) 02/02/19 16:12 APTT 25.7 Sec. (24.2-36.6) 02/02/19 16:12 Thrombin Time 16.3 Sec. (15.1-19.6) 02/02/19 16:12 Sodium 142 mmol/L (137-145) 02/11/19 05:21 Potassium 4.5 mmol/L (3.6-5.0) 02/11/19 05:21 Chloride 105.8 mmol/L (98-107) 02/11/19 05:21 Carbon Dioxide 27 mmol/L (22-30) 02/11/19 05:21 Anion Gap 14 mmol/L 02/11/19 05:21 BUN 17 mg/dL (7-17) 02/11/19 05:21 Creatinine 0.9 mg/dL (0.7-1.2) 02/11/19 05:21 Estimated GFR > 60 ml/min 02/11/19 05:21 BUN/Creatinine Ratio 19 % 02/11/19 05:21 Glucose 85 mg/dL (65-100) 02/11/19 05:21 POC Glucose 69 (70-105) L 02/02/19 15:46 Hemoglobin A1c 5.4 % (4-6) 02/02/19 20:24 Calcium 9.1 mg/dL (8.4-10.2) 02/11/19 05:21 Total Bilirubin 0.70 mg/dL (0.1-1.2) 02/03/19 07:14 AST 16 units/L (5-40) 02/03/19 07:14 ALT 10 units/L (7-56) 02/03/19 07:14 Alkaline Phosphatase 54 units/L (35-129) 02/03/19 07:14 Troponin T < 0.010 ng/mL (0.00-0.029) 02/02/19 16:12 Total Protein 6.9 g/dL (6.3-8.2) 02/03/19 07:14 Albumin 3.4 g/dL (3.9-5) L 02/03/19 07:14 Albumin/Globulin Ratio 1.0 % 02/03/19 07:14 Triglycerides 42 mg/dL (2-149) 02/03/19 07:14 Cholesterol 133 mg/dL (50-199) 02/03/19 07:14 LDL Cholesterol Direct 70 mg/dL (50-130) 02/03/19 07:14 HDL Cholesterol 61 mg/dL (40-59) H 02/03/19 07:14 Cholesterol/HDL Ratio 2.18 % 02/03/19 07:14 Active Medications - Current Medications Current Medications: Generic Name Dose Route Start Last Admin Trade Name Freq PRN Reason Stop Dose Admin Acetaminophen 650 mg 02/02/19 18:22 02/04/19 15:46 Tylenol PO 650 mg Q4H PRN Administration Pain MILD(1-3)/Fever >100.5/[place] Atorvastatin Calcium 80 mg 02/02/19 22:00 02/10/19 22:01 Lipitor PO 80 mg QHS NISH Administration Clopidogrel Bisulfate 75 mg 02/03/19 10:00 02/11/19 11:28 Plavix PO 75 mg QDAY NISH Administration Enoxaparin Sodium 40 mg 02/02/19 22:00 02/10/19 22:02 Lovenox SUB-Q 40 mg QDAY@2200 NISH Administration Escitalopram Oxalate 30 mg 02/02/19 19:00 02/11/19 11:27 Lexapro PO 30 mg DAILY NISH Administration Hydromorphone HCl 0.25 mg 02/02/19 18:23 Dilaudid IV Q3H PRN Pain, Moderate (4-6) Levetiracetam 750 mg 02/05/19 10:00 02/11/19 11:27 Keppra PO 750 mg BID NISH Administration Lisinopril 20 mg 02/02/19 19:00 02/10/19 09:41 Zestril PO 20 mg QDAY NISH Administration Ondansetron HCl 4 mg 02/02/19 18:22 Zofran IV Q8H PRN Nausea And Vomiting Sodium Chloride 10 ml 02/02/19 22:00 02/11/19 11:28 Sodium Chloride Flush Syringe 10 Ml IV 10 ml BID NISH Administration Sodium Chloride 10 ml 02/02/19 18:22 Sodium Chloride Flush Syringe 10 Ml IV PRN PRN LINE FLUSH Nutrition/Malnutrition Assess - Dietary Evaluation Nutrition/Malnutrition Findings: Nutrition Notes Start: 02/07/19 11:11 Freq: Status: Active Protocol: Document 02/11/19 12:21 EB (Rec: 02/11/19 12:26 [id number]) Co-Sign 02/11/19 12:21 LP Nutrition Notes Initial or Follow up Brief Note Current Diagnosis Hypertension,Hyperlipidemia Other Pertinent Diagnosis Depression, Hx CVAs, Seizures Current Diet Cardiac Labs/Tests Reviewed Pertinent Medications Reviewed Height 4 ft 5 in Weight 65.4 kg [place] Body Weight (kg) 29.54 BMI 36.1 Subjective/Other Information F/U for intakes. Pt resting in bed at time of visit. Pt reports eating 75- 100% of meals yesterday and consumed 50% of breakfast eaten today. Pt admits to not liking breakfast foods, but eats most of her lunch and dinner. No reports of troubles chewing or swallowing, or N/V . Percent of energy/protein needs met: 100%/100% Burn Absent Trauma Absent Is patient on ventilator? No Is Patient Ambulatory and/or Out of Bed No REE-([facility]-confined to bed) 1122.240 Kcal/Kg value to use for calculation 20 Approximate Energy Requirements Using 1308 kcal/Kg Calculation Used for Recommendations Kcal/kg Additional Notes Protein Needs: 47-67g (1-1.2g/ kg adjBW) Fluid Needs: 1 ml/kcal Nutrition Intervention Anticipated Discharge Needs: Cardiac diet Revisit per MD consult or patient Sign Off request:
[2019-02-11] MEDS: ZESTRIL PO SCH (13:45)
[2019-02-11] MEDS: LOVENOX SUB-Q SCH (22:28)
[2019-02-12] MEDS: PLAVIX PO SCH (10:55)
[2019-02-12] MEDS: ZESTRIL PO SCH (10:55)
[2019-02-12] MEDS: LEXAPRO PO SCH (10:55)
[2019-02-12] MEDS: KEPPRA PO SCH ×2 (10:56→22:04)
[2019-02-12] MEDS: SODIUM CHLORIDE FLUSH SYRINGE 10 ML IV SCH ×2 (10:56→22:04)
--- NOTE | 2019-02-12 13:30 | Progress Note ---
Assessment and Plan Assessment and plan: Left sided weakness MRI Brain no acute stroke, but chronic microbleeds Patient seen by PT and recommends subacute rehab History of stroke Neurology following Plavix added Hypertension Controlled with Lisinopril Hyperlipidemia Cont. Lipitor Depression On Lexapro Dispo: Pending insurance authorization for subacute rehabilitation Full code status History Interval history: Patient was seen and evaluated this morning, patient didn't have any complaints Hospitalist Physical - Physical exam Narrative exam: Not in cardiopulmonary distress. The patient appeared well nourished and normally developed. Vital signs as documented. Head exam is unremarkable. No scleral icterus . Neck is without jugular venous distension, thyromegaly, or carotid bruits. Lungs are clear to auscultation. Cardiac exam reveals regular rate and Rhythm. Abdominal exam reveals normal bowel sounds, no masses, no organomegaly and no aortic enlargement. Extremities are nonedematous and both femoral and pedal pulses are normal. SUPERVISOR TITLE: Alert and oriented 3. - Constitutional Vitals: Temp Pulse Resp BP Pulse Ox 98.7 F 76 18 117/56 99 02/12/19 07:50 02/12/19 08:34 02/12/19 08:34 02/12/19 07:50 02/12/19 07:50 General appearance: Present: no acute distress, well-nourished Results - Labs CBC & Chem 7: 02/11/19 05:21 02/11/19 05:21 Labs: Laboratory Last Values WBC 5.0 K/mm3 (4.5-11.0) 02/11/19 05:21 RBC 4.05 M/mm3 (3.65-5.03) 02/11/19 05:21 Hgb 12.7 gm/dl (10.1-14.3) 02/11/19 05:21 Hct 37.8 % (30.3-42.9) 02/11/19 05:21 MCV 93 fl (79-97) 02/11/19 05:21 MCH 31 pg (28-32) 02/11/19 05:21 MCHC 34 % (30-34) 02/11/19 05:21 RDW 13.1 % (13.2-15.2) L 02/11/19 05:21 Plt Count 160 K/mm3 (140-440) 02/11/19 05:21 Lymph % (Auto) 41.5 % (13.4-35.0) H 02/11/19 05:21 [place] % (Auto) 6.9 % (0.0-7.3) 02/11/19 05:21 Eos % (Auto) 2.1 % (0.0-4.3) 02/11/19 05:21 Baso % (Auto) 0.4 % (0.0-1.8) 02/11/19 05:21 Lymph # 2.1 K/mm3 (1.2-5.4) 02/11/19 05:21 [place] # 0.3 K/mm3 (0.0-0.8) 02/11/19 05:21 Eos # 0.1 K/mm3 (0.0-0.4) 02/11/19 05:21 Baso # 0.0 K/mm3 (0.0-0.1) 02/11/19 05:21 Seg Neutrophils % 49.1 % (40.0-70.0) 02/11/19 05:21 Seg Neutrophils # 2.5 K/mm3 (1.8-7.7) 02/11/19 05:21 PT 13.6 Sec. (12.2-14.9) 02/02/19 16:12 INR 0.98 (0.87-1.13) 02/02/19 16:12 APTT 25.7 Sec. (24.2-36.6) 02/02/19 16:12 Thrombin Time 16.3 Sec. (15.1-19.6) 02/02/19 16:12 Sodium 142 mmol/L (137-145) 02/11/19 05:21 Potassium 4.5 mmol/L (3.6-5.0) 02/11/19 05:21 Chloride 105.8 mmol/L (98-107) 02/11/19 05:21 Carbon Dioxide 27 mmol/L (22-30) 02/11/19 05:21 Anion Gap 14 mmol/L 02/11/19 05:21 BUN 17 mg/dL (7-17) 02/11/19 05:21 Creatinine 0.9 mg/dL (0.7-1.2) 02/11/19 05:21 Estimated GFR > 60 ml/min 02/11/19 05:21 BUN/Creatinine Ratio 19 % 02/11/19 05:21 Glucose 85 mg/dL (65-100) 02/11/19 05:21 POC Glucose 69 (70-105) L 02/02/19 15:46 Hemoglobin A1c 5.4 % (4-6) 02/02/19 20:24 Calcium 9.1 mg/dL (8.4-10.2) 02/11/19 05:21 Total Bilirubin 0.70 mg/dL (0.1-1.2) 02/03/19 07:14 AST 16 units/L (5-40) 02/03/19 07:14 ALT 10 units/L (7-56) 02/03/19 07:14 Alkaline Phosphatase 54 units/L (35-129) 02/03/19 07:14 Troponin T < 0.010 ng/mL (0.00-0.029) 02/02/19 16:12 Total Protein 6.9 g/dL (6.3-8.2) 02/03/19 07:14 Albumin 3.4 g/dL (3.9-5) L 02/03/19 07:14 Albumin/Globulin Ratio 1.0 % 02/03/19 07:14 Triglycerides 42 mg/dL (2-149) 02/03/19 07:14 Cholesterol 133 mg/dL (50-199) 02/03/19 07:14 LDL Cholesterol Direct 70 mg/dL (50-130) 02/03/19 07:14 HDL Cholesterol 61 mg/dL (40-59) H 02/03/19 07:14 Cholesterol/HDL Ratio 2.18 % 02/03/19 07:14 Active Medications - Current Medications Current Medications: Generic Name Dose Route Start Last Admin Trade Name Freq PRN Reason Stop Dose Admin Acetaminophen 650 mg 02/02/19 18:22 02/04/19 15:46 Tylenol PO 650 mg Q4H PRN Administration Pain MILD(1-3)/Fever >100.5/[place] Atorvastatin Calcium 80 mg 02/02/19 22:00 02/11/19 22:28 Lipitor PO 80 mg QHS NISH Administration Clopidogrel Bisulfate 75 mg 02/03/19 10:00 02/12/19 10:55 Plavix PO 75 mg QDAY NISH Administration Enoxaparin Sodium 40 mg 02/02/19 22:00 02/11/19 22:28 Lovenox SUB-Q 40 mg QDAY@2200 NISH Administration Escitalopram Oxalate 30 mg 02/02/19 19:00 02/12/19 10:55 Lexapro PO 30 mg DAILY NISH Administration Hydromorphone HCl 0.25 mg 02/02/19 18:23 Dilaudid IV Q3H PRN Pain, Moderate (4-6) Levetiracetam 750 mg 02/05/19 10:00 02/12/19 10:56 Keppra PO 750 mg BID NISH Administration Lisinopril 20 mg 02/02/19 19:00 02/12/19 10:55 Zestril PO 20 mg QDAY NISH Administration Ondansetron HCl 4 mg 02/02/19 18:22 Zofran IV Q8H PRN Nausea And Vomiting Sodium Chloride 10 ml 02/02/19 22:00 02/12/19 10:56 Sodium Chloride Flush Syringe 10 Ml IV 10 ml BID NISH Administration Sodium Chloride 10 ml 02/02/19 18:22 Sodium Chloride Flush Syringe 10 Ml IV PRN PRN LINE FLUSH Nutrition/Malnutrition Assess - Dietary Evaluation Nutrition/Malnutrition Findings: Nutrition Notes Start: 02/07/19 11:11 Freq: Status: Active Protocol: Document 02/11/19 12:21 EB (Rec: 02/11/19 12:26 [id number]) Co-Sign 02/11/19 12:21 LP Nutrition Notes Initial or Follow up Brief Note Current Diagnosis Hypertension,Hyperlipidemia Other Pertinent Diagnosis Depression, Hx CVAs, Seizures Current Diet Cardiac Labs/Tests Reviewed Pertinent Medications Reviewed Height 4 ft 5 in Weight 65.4 kg [place] Body Weight (kg) 29.54 BMI 36.1 Subjective/Other Information F/U for intakes. Pt resting in bed at time of visit. Pt reports eating 75- 100% of meals yesterday and consumed 50% of breakfast eaten today. Pt admits to not liking breakfast foods, but eats most of her lunch and dinner. No reports of troubles chewing or swallowing, or N/V . Percent of energy/protein needs met: 100%/100% Burn Absent Trauma Absent Is patient on ventilator? No Is Patient Ambulatory and/or Out of Bed No REE-([facility]-confined to bed) 1122.240 Kcal/Kg value to use for calculation 20 Approximate Energy Requirements Using 1308 kcal/Kg Calculation Used for Recommendations Kcal/kg Additional Notes Protein Needs: 47-67g (1-1.2g/ kg adjBW) Fluid Needs: 1 ml/kcal Nutrition Intervention Anticipated Discharge Needs: Cardiac diet Revisit per MD consult or patient Sign Off request:
[2019-02-12] MEDS: LOVENOX SUB-Q SCH (22:03)
[2019-02-13] MEDS: KEPPRA PO SCH (09:10)
[2019-02-13] MEDS: LEXAPRO PO SCH (09:10)
[2019-02-13] MEDS: PLAVIX PO SCH (09:11)
[2019-02-13] MEDS: SODIUM CHLORIDE FLUSH SYRINGE 10 ML IV SCH (09:11)
[2019-02-13] MEDS: ZESTRIL PO SCH (09:14)
--- NOTE | 2019-02-13 12:08 | Discharge Summary ---
Providers - Providers Date of Admission: 02/02/19 18:20 Attending physician: RISSA PABLO MD 02/02/19 18:23 Consult to Physician [CONS] Routine Comment: Consulting Provider: ANNY NOGUEIRA Physician Instructions: Reason For Exam: acute CVA 02/02/19 18:30 Occupational Therapy Evaluate and Treat [CONS] Routine Comment: Reason For Exam: Neuro deficits Physical Therapy Evaluation and Treat [CONS] Routine Comment: Reason For Exam: Neuro deficits 02/03/19 16:15 Speech Therapy Evaluation and Treat [CONS] Routine Reason For Exam: stroke [facility] Reason for admission: New onset seizure Condition: Stable Pertinent studies: MRI head Hospital course: 83-year-old -[place] female with history of multiple strokes 3 hypertension hyperlipidemia dementia and depression was found to have left-sided weakness in both left upper and lower extremity of new onset. Patient was normally ambulatory. Activities of daily living like shower and eating had to be assisted. While waiting for the EMS, patient had generalized seizure which is first time occurrence. Seizures lasted for 1 minute. Patient was slightly postictal but in the emergency room she was alert and oriented. Last well-known time was 9 AM prior to admission. Patient arrived around 3 PM. Patient was out of the window for TPA. The patient underwent evaluation with MRI of the brain that showed no acute stroke but chronic microbleeds. Neurology saw the patient in consultation and suspected very complex series of strokes with right anterior cerebral artery has old infarct from total occlusion, midline pontine infarct old and subacute right internal capsule infract suspect all are related to atherosclerotic occlusive disease. Echocardiogram revealed EF 50-55% with negative bubble study. No evidence of thromboembolic source reported. Patient was treated with Keppra for seizure prophylaxis 750 mg by mouth twice a day. No new seizure activity after admission. Patient will be continued on secondary prevention with Lipitor and Plavix. Physical therapy saw the patient consultation and recommended subacute rehabilitation. Dedicated discharge time 32 minutes. Disposition: [id number] [facility] Time spent for discharge: 32 minutes - Discharge Diagnoses (1) History of CVA (cerebrovascular accident) Status: Acute (2) New onset seizure Status: Acute (3) Depression Status: Chronic Qualifiers: Depression Type: unspecified Qualified Code(s): F32.9 - Major depressive disorder, single episode, unspecified (4) Hyperlipidemia Status: Chronic Qualifiers: Hyperlipidemia type: mixed hyperlipidemia Qualified Code(s): E78.2 - Mixed hyperlipidemia (5) Hypertension Status: Chronic Qualifiers: Hypertension type: essential hypertension Qualified Code(s): I10 - Essential (primary) hypertension (6) Acute CVA (cerebrovascular accident) Status: Ruled-out Core Measure Documentation - Palliative Care Palliative Care/ Comfort Measures: Not Applicable - Core Measures Any of the following diagnoses?: none Exam - Physical Exam Narrative exam: Not in cardiopulmonary distress. The patient appeared well nourished and normally developed. Vital signs as documented. Head exam is unremarkable. No scleral icterus . Neck is without jugular venous distension, thyromegaly, or carotid bruits. Lungs are clear to auscultation. Cardiac exam reveals regular rate and Rhythm. Abdominal exam reveals normal bowel sounds, no masses, no organomegaly and no aortic enlargement. Extremities are nonedematous and both femoral and pedal pulses are normal. SMOKE INSPECTOR: Alert and oriented 3. - Constitutional Vitals: Temp Pulse Resp BP Pulse Ox 98.9 F 52 L 18 139/66 100 02/13/19 07:07 02/13/19 10:00 02/13/19 10:00 02/13/19 09:14 02/13/19 10:00 Plan Activity: no restrictions Weight Bearing Status: Full Weight Bearing Diet: low cholesterol, low salt Follow up with: MILI VILLAFANA MD [Primary Care Provider] - 3-5 Days Prescriptions: levETIRAcetam [Keppra TAB] 750 mg PO BID #60 tablet Clopidogrel [Plavix] 75 mg PO QDAY #60 tablet Lisinopril [Zestril TAB] 20 mg PO QDAY #30 tablet
[2019-02-13 13:19] VITALS: BP 108/54
== END 2019-02-13 16:48 | disposition home health service (06) | DRG 101 ==
LOC: ED 15:29 → 4A 18:20 → 2B-ACE 02-08 14:08
PROVIDERS: ADMIT Internal Medicine; ATTEND Internal Medicine
DX: R56.9 Unspecified convulsions (principal); Z86.73 Personal history of transient ischemic attack (TIA), and cerebral infarction without residual deficits; Z79.899 Other long term (current) drug therapy; I10 Essential (primary) hypertension; E78.5 Hyperlipidemia, unspecified; F03.90 Unspecified dementia, unspecified severity, without behavioral disturbance, psychotic disturbance, mood disturbance, and anxiety; Z82.49 Family history of ischemic heart disease and other diseases of the circulatory system; F32.9 Major depressive disorder, single episode, unspecified
CPT/HCPCS: 36415; 70450; 70544; 70551; 80048; 80053; 80061; 82962; 83036; 84484; 85025; 85610; 85670; 85730; 93005; 93010; 93306; 93880; G0378; A9270-GY; J1650; J1953; J2704; J7042